=== PATIENT | male | born 1990 | race African-American/Black ===

== ENCOUNTER 2017-10-19 18:52 | Emergency (ER) | payer MEDICAID, OTHER ==
[~2017-10-19] VITALS: Ht 170.2 cm; Wt 59.0 kg
[2017-10-19 19:20] VITALS: BP 120/77
[2017-10-19] MEDS ORDERED: ALBUTEROL SULF8.5 GM INH (19:23)
[2017-10-19] MEDS ORDERED: PREDNISONE20 MG ORAL (19:23)
--- NOTE | 2017-10-20 12:59 | Emergency Room Report ---
History of Present Illness General Chief Complaint: Upper Respiratory Illness Source: Patient Present Illness HPI 27-year-old male presents ED complaining of cough and shortness of breath x2 days. States cough is dry. notes soreness in his chest with deep breaths. Denies history of asthma. Denies smoking. Denies fevers or chills. Denies bodyaches. Denies sore throat or earache. Denies sick contacts recent travel. Father aggravating relieving factors. Denies any other associated symptoms Allergies: Coded Allergies: No Known Allergies (Unverified , 03/15/15) Patient History Past Medical History: none Past Surgical History: none Pertinent Family History: none Social History: Denies: smoking, alcohol use, drug use Immunizations: UTD Reviewed Nursing Documentation: PMH: Agreed, PSxH: Agreed Nursing Documentation-PMH Past Medical History: No Stated History Review of Systems All Other Systems: negative except mentioned in HPI Physical Exam Vital Signs Date Time Temp Pulse Resp B/P (MAP) Pulse Ox O2 Delivery O2 Flow Rate FiO2 10/19/17 19:06 99.3 115 20 120/77 99 Room Air Sp02 EP Interpretation: reviewed, normal General Appearance: no apparent distress, alert, GCS 15, non-toxic Head: normocephalic, atraumatic Eyes: bilateral eye normal inspection, bilateral eye PERRL ENT: hearing grossly normal, normal pharynx, no angioedema, normal voice Neck: full range of motion, supple/symm/no masses Respiratory: chest non-tender, lungs clear, normal breath sounds, speaking full sentences Cardiovascular #1: regular rate, rhythm, no edema Cardiovascular #2: 2+ carotid (R), 2+ carotid (L), 2+ radial (R), 2+ radial (L) , 2+ dorsalis pedis (R), 2+ dorsalis pedis (L) Gastrointestinal: normal bowel sounds, non tender, soft, non-distended, no guarding, no rebound Rectal: deferred Genitourinary: normal inspection, no CVA tenderness Musculoskeletal: back normal, gait/station normal, normal range of motion, non- tender Neurologic: alert, oriented x3, responsive, motor strength/tone normal, sensory intact, speech normal Psychiatric: judgement/insight normal, memory normal, mood/affect normal, no suicidal/homicidal ideation Reflexes: 3+ bicep (R), 3+ bicep (L), 3+ tricep (R), 3+ tricep (L), 3+ knee (R) , 3+ knee (L) Skin: normal color, no rash, warm/dry, well hydrated Lymphatic: no adenopathy Medical Decision Making Diagnostic Impression: Primary Impression: Bronchitis ER Course Hospital Course 27-year-old male presents to ED complaining of cough, trouble breathing Differential diagnoses include: URI, pharyngitis, otitis media, asthma Clinical course Patient placed on stretcher. After initial history, physical exam reveals a male in no acute distress. Bilateral TM unremarkable. No pharyngeal erythema. No tonsillar exudates. No lymphadenopathy. lungs clear. abdomen soft. Clinical findings consistent with bronchitis. Reassurance given. Supportive therapy. Patient has strange affect. Reviewed EMR patient has prior history of amphetamine abuse Diagnosis - bronchitis Stable and discharged home with Rx Albuterol, Prednisone. Instructed to followup with PMD. Return to ED if symptoms recur or worsen Last Vital Signs Date Time Temp Pulse Resp B/P (MAP) Pulse Ox O2 Delivery O2 Flow Rate FiO2 10/19/17 19:20 115 20 Room Air 10/19/17 19:20 99.3 120/77 99 Status: improved Disposition: HOME, SELF-CARE Condition: Stable Scripts Prednisone* (PREDNISONE*) 20 Mg Tablet 40 MG ORAL DAILY, #10 TAB Prov: RICARDA CORDERO M.D. 10/19/17 Albuterol Sulfate* (ALBUTEROL SULFATE MDI*) 8.5 Gm Hfa.aer.ad 2 PUFF INH Q6H, #1 EA 0 Refills Prov: RICARDA CORDERO M.D. 10/19/17 Referrals: [facility]REFERRING (PCP) Patient Instructions: Acute Bronchitis, [id number] RICARDA CORDERO M.D. Oct 20, 2017 12:59
== END 2017-10-19 19:30 | disposition home or self-care (01) ==
LOC: EMR 19:30
DX: J40 Bronchitis, not specified as acute or chronic (principal)
CPT/HCPCS: 99283

== ENCOUNTER 2018-05-21 21:30 | Emergency (ER) | payer MEDICAID ==
[~2018-05-21] VITALS: Ht 172.7 cm; Wt 61.2 kg
[~2018-05-21 21:30] MED LIST: ALBUTEROL SULF8.5 GM INH; PREDNISONE20 MG ORAL
[2018-05-21 21:58] VITALS: BP 112/76
--- NOTE | 2018-05-21 22:14 | Emergency Room Report ---
History of Present Illness General Chief Complaint: Male Urogenital Problems Source: Patient Present Illness HPI Patient presents with reports that a ring that was placed around his genitals is difficult to remove He reports that he placed this on 2 days ago And as he continues not to be able to remove it he presents to the emergency room Denies any abdominal pain denies any nausea vomiting Denies any fevers or chills Allergies: Coded Allergies: No Known Allergies (Unverified , 03/15/15) Patient History Past Medical History: see triage record Pertinent Family History: none Reviewed Nursing Documentation: PMH: Agreed; PSxH: Agreed Nursing Documentation-PMH Past Medical History: No Stated History Review of Systems All Other Systems: negative except mentioned in HPI Physical Exam Vital Signs Date Time Temp Pulse Resp B/P (MAP) Pulse Ox O2 Delivery O2 Flow Rate FiO2 05/21/18 21:43 97.3 101 18 112/76 95 Room Air 97.3 Sp02 EP Interpretation: reviewed, normal General Appearance: well appearing, no apparent distress Head: normocephalic, atraumatic Eyes: bilateral eye PERRL, bilateral eye EOMI ENT: hearing grossly normal, normal pharynx Neck: full range of motion, supple Respiratory: lungs clear Cardiovascular #1: regular rate, rhythm Gastrointestinal: non tender, soft Genitourinary: other - Ring that is at the base of the shaft of the penis also underneath the scrotal area with secondary swelling to the shaft of the penis Musculoskeletal: back normal Neurologic: alert, oriented x3 Skin: other - Edema Lymphatic: no adenopathy Medical Decision Making Diagnostic Impression: Primary Impression: Abnormal urogenital findings Additional Impression: Foreign body ER Course Given the examination and the presentation Ring cutters were utilized To cuts in opposing locations will required As the ring was significantly wide and extremely hard to manipulate After removal patient feels significantly improved The penile engorgement also decreased appropriately no signs of any remnants of priapism. And the patient is stable for initial conservative outpatient trial Last Vital Signs Date Time Temp Pulse Resp B/P (MAP) Pulse Ox O2 Delivery O2 Flow Rate FiO2 05/21/18 21:43 97.3 101 18 112/76 95 Room Air 97.3 Status: improved Disposition: HOME, SELF-CARE Condition: Improved Additional Instructions: Patient is provided with the discharge instructions notified to follow up with primary doctor in the next 2-3 days otherwise return to the er with any worsening symptoms. Please note that this report is being documented using DRAGON technology. This can lead to erroneous entry secondary to incorrect interpretation by the dictating instrument. Manolo Adam DO May 21, 2018 22:14
[2018-05-21 23:35] VITALS: BP 116/72
[2018-05-21 23:45] VITALS: BP 116/72
== END 2018-05-21 23:45 | disposition home or self-care (01) ==
LOC: EMR 22:18
DX: S30.853A Superficial foreign body of scrotum and testes, initial encounter (principal); X58.XXXA Exposure to other specified factors, initial encounter; Y92.9 Unspecified place or not applicable
CPT/HCPCS: 99282

== ENCOUNTER 2018-06-09 00:57 | Emergency (ER) | payer MEDICAID ==
[~2018-06-09] VITALS: Ht 172.7 cm; Wt 59.0 kg
[2018-06-09] MEDS ORDERED: NKM (01:03)
[2018-06-09 01:08] VITALS: BP 122/84
--- NOTE | 2018-06-09 01:21 | Emergency Room Report ---
History of Present Illness General Chief Complaint: Chest Pain Source: Patient Present Illness HPI Is a 28-year-old male with a history of methamphetamine abuse. He presents with chief complaint of chest pain. He said he felt like there is something inside his chest and is spreading around. This has been going since this morning. Denies any fever chills. Nothing made it better. Movement or inspiration made it worse. No nausea no vomiting. No diaphoresis. No other complaint. Allergies: Coded Allergies: No Known Allergies (Unverified , 03/15/15) Patient History Past Medical History: see triage record, old chart reviewed Past Surgical History: none Pertinent Family History: none Social History: Reports: smoking, drug use Immunizations: other Reviewed Nursing Documentation: PMH: Agreed; PSxH: Agreed Nursing Documentation-PMH Past Medical History: No History, Except For Review of Systems Eye: Denies: eye pain, blurred vision ENT: Denies: ear pain, nose congestion, throat swelling Respiratory: Denies: cough, shortness of breath Cardiovascular: Reports: chest pain; Denies: palpitations Gastrointestinal: Denies: abdominal pain, diarrhea, nausea, vomiting Musculoskeletal: Denies: back pain, joint pain Skin: Denies: rash Neurological: Denies: headache, numbness Endocrine: Denies: increased thirst, increased urine Hematologic/Lymphatic: Denies: easy bruising All Other Systems: negative except mentioned in HPI Physical Exam Vital Signs Date Time Temp Pulse Resp B/P (MAP) Pulse Ox O2 Delivery O2 Flow Rate FiO2 06/09/18 01:01 98.1 113 18 122/84 98 Room Air 98.1 vitals with tachycardia Sp02 EP Interpretation: reviewed, normal General Appearance: well appearing, no apparent distress, alert Head: normocephalic, atraumatic Eyes: bilateral eye PERRL, bilateral eye EOMI ENT: hearing grossly normal, normal pharynx Neck: full range of motion, supple, no meningismus Respiratory: chest non-tender, lungs clear, normal breath sounds Cardiovascular #1: regular rate, rhythm, no murmur Gastrointestinal: normal bowel sounds, non tender, no mass, no organomegaly, no bruit, non-distended Musculoskeletal: back normal, gait/station normal, normal range of motion Psychiatric: mood/affect normal Skin: warm/dry Medical Decision Making Diagnostic Impression: Primary Impression: Chest pain Qualified Codes: R07.9 - Chest pain, unspecified Additional Impression: Amphetamine abuse ER Course Patient with atypical chest pain. He is in there, and playing on his phone. No evidence of ACS, PE, dissection to name a few. We'll discharge home. EKG Diagnostic Results Rate: normal Rhythm: NSR ST Segments: no acute changes ASA given to the pt in ED: No Rhythm Strip Diag. Results Rhythm Strip Time: 01:20 EP Interpretation: yes Rate: 98 Rhythm: NSR, no PVC's, no ectopy Chest X-Ray Diagnostic Results Chest X-Ray Diagnostic Results : Chest X-Ray Ordered: Yes # of Views/Limited/Complete: 1 View Indication: Chest Pain EP Interpretation: Yes Interpretation: no consolidation, no effusion, no pneumothorax, no acute cardiopulmonary disease Impression: No acute disease Electronically Signed by: Alirio Gray MD Last Vital Signs Date Time Temp Pulse Resp B/P (MAP) Pulse Ox O2 Delivery O2 Flow Rate FiO2 06/09/18 01:08 113 18 Room Air 06/09/18 01:08 98.1 122/84 98 98.1 Status: improved Disposition: HOME, SELF-CARE Condition: Stable Scripts Ibuprofen* (MOTRIN*) 600 Mg Tablet 600 MG ORAL THREE TIMES A DAY, #30 TAB 0 Refills Prov: ALIRIO GRAY M.D. 06/09/18 Patient Instructions: Nonspecific Chest Pain Additional Instructions: Abstain from drugs. Follow-up with your doctor in 7 days. Return if worse. ALIRIO GRAY M.D. Jun 09, 2018 01:21
[2018-06-09] MEDS ORDERED: IBUPROFEN600 MG ORAL (01:32)
[2018-06-09 01:38] VITALS: BP 122/84
--- NOTE | 2018-06-09 11:21 | Diagnostic Imaging Report ---
Indication: Dyspnea Comparison: None A single view chest radiograph was obtained. Findings: Cardiomediastinal appearance is within normal limits for age. Pulmonary vascularity is appropriate. The diaphragmatic contour is smooth and costophrenic angles are sharp. No pleural effusions are identified. The bones are unremarkable. Impression: No acute findings
--- NOTE | 2018-06-14 16:08 | Cardiology Report ---
APPROVED REPORT EKG Measurement Heart [id number] Normal sinus rhythm Normal ECG
[2018-06-15] MEDS ORDERED: HYDROCORTISONE30 G2 TP (14:13)
== END 2018-06-09 01:39 | disposition home or self-care (01) ==
LOC: EMR 01:24
DX: R07.9 Chest pain, unspecified (principal); F15.10 Other stimulant abuse, uncomplicated
CPT/HCPCS: 71045; 93005; 99283

== ENCOUNTER 2018-06-29 21:53 | Emergency (ER) | payer MEDICAID ==
[~2018-06-29] VITALS: Ht 175.3 cm; Wt 59.0 kg
[2018-06-29 21:35] VITALS: BP 136/72
[~2018-06-29 21:53] MED LIST changes: +HYDROCORTISONE30 G2 TP; +IBUPROFEN600 MG ORAL; +NKM
[2018-06-29] MEDS: LORazepam 0.5mg tab ORAL ONE ×2 (22:14→22:29)
[2018-06-29 23:27] VITALS: BP 133/83
[2018-06-29] MEDS ORDERED: LORazepam 0.5mg tab ORAL ONE (23:30)
--- NOTE | 2018-06-30 04:18 | Emergency Room Report ---
History of Present Illness General Chief Complaint: General Complaint Source: EMS Present Illness HPI The patient is a 28-year-old male presented after increased anxiety. Patient reports having increased agitation after using methamphetamine. The patient denies any fever. He reports having the difficulty sleeping. Allergies: Coded Allergies: No Known Allergies (Unverified , 03/15/15) Patient History Past Medical History: see triage record Reviewed Nursing Documentation: PMH: Agreed; PSxH: Agreed Nursing Documentation-PMH Past Medical History: No History, Except For Review of Systems All Other Systems: negative except mentioned in HPI Physical Exam Vital Signs Date Time Temp Pulse Resp B/P (MAP) Pulse Ox O2 Delivery O2 Flow Rate FiO2 06/29/18 21:33 99.2 92 16 136/72 99 Room Air 99.1 General Appearance: well appearing, no apparent distress, alert, GCS 15 Head: normocephalic, atraumatic ENT: hearing grossly normal, normal voice Neck: full range of motion, supple Respiratory: no respiratory distress, speaking full sentences Musculoskeletal: no calf tenderness Neurologic: normal gait Psychiatric: mood/affect normal Skin: no rash Medical Decision Making Diagnostic Impression: Primary Impression: Substance abuse Last Vital Signs Date Time Temp Pulse Resp B/P (MAP) Pulse Ox O2 Delivery O2 Flow Rate FiO2 06/29/18 23:27 97.5 100 19 133/83 99 Room Air Disposition: HOME, SELF-CARE Condition: Stable Referrals: [facility] (PCP) Patient Instructions: Substance Use Disorder Mario Nazario MD Jun 30, 2018 04:18
== END 2018-06-29 23:45 | disposition home or self-care (01) ==
LOC: EDBD 21:53 → EMR 23:28
DX: F15.10 Other stimulant abuse, uncomplicated (principal)
CPT/HCPCS: 99283

== ENCOUNTER 2019-01-19 21:06 | Emergency (ER) | payer MEDICAID ==
[~2019-01-19] VITALS: Ht 175.3 cm; Wt 59.0 kg
[2019-01-19] MEDS ORDERED: TRUVADA1 TAB ORAL (21:16)
--- NOTE | 2019-01-19 21:22 | NUR ---
ED Nurse Note: pt walked in c/o left 5th finger pain and abscess on back of head, pt states he had abscess x 1 month, denies pain. noted small bump on parietal area, no active drainage noted. Pt reports he was doing some tumbling and accidentally hurt his finger, reports pain on left 5th finger. cms intact, mild swelling noted with tenderness, but no open wound noted. will cont monitor.
[2019-01-19 21:24] VITALS: BP 126/81
[2019-01-19] MEDS ORDERED: IBUPROFEN600 MG ORAL (22:36)
--- NOTE | 2019-01-19 22:42 | NUR ---
ED Nurse Note: pt cleared to be d/c per ERMD, pt discharge and aftercare instruction provided w/ prescription, pt education done via discussion and handout, pt advised to follow up with pcp or return to ed if sx worsen or new sx develop, pt verbalized understanding and agrees with plan, vss, ambulatory w/ steady gait, left w/ all belongings. ID band removed
[2019-01-19 22:43] VITALS: BP 121/67
--- NOTE | 2019-01-20 00:15 | Emergency Room Report ---
History of Present Illness General Chief Complaint: Upper Extremity Injury Source: Patient Present Illness HPI 28-year-old male presents ED for evaluation. States that he has a possibly dislocated finger. States it was initially swollen after punching a wall earlier today. Pain is dull, 5 out of 10, nonradiating. Denies any other injuries. No other aggravating relieving factors. Denies any other associated symptoms Allergies: Coded Allergies: No Known Allergies (Unverified , 03/15/15) Patient History Past Medical History: none Past Surgical History: none Pertinent Family History: none Social History: Denies: smoking, alcohol use, drug use Immunizations: UTD Reviewed Nursing Documentation: PMH: Agreed; PSxH: Agreed Nursing Documentation-PMH Past Medical History: No History, Except For Review of Systems All Other Systems: negative except mentioned in HPI Physical Exam Vital Signs Date Time Temp Pulse Resp B/P (MAP) Pulse Ox O2 Delivery O2 Flow Rate FiO2 01/19/19 21:12 98.6 118 16 126/81 97 Room Air Sp02 EP Interpretation: reviewed, normal General Appearance: no apparent distress, alert, GCS 15, non-toxic Head: normocephalic Eyes: bilateral eye normal inspection, bilateral eye PERRL ENT: normal ENT inspection Neck: normal inspection Respiratory: normal inspection Cardiovascular #1: normal inspection Gastrointestinal: normal inspection Rectal: deferred Genitourinary: no CVA tenderness Musculoskeletal: normal range of motion, tender - L hand Neurologic: alert, oriented x3, responsive, motor strength/tone normal, sensory intact, speech normal Psychiatric: judgement/insight normal, memory normal, mood/affect normal, no suicidal/homicidal ideation Skin: normal inspection Lymphatic: normal inspection Medical Decision Making Diagnostic Impression: Primary Impression: Hand contusion Qualified Codes: S60.222A - Contusion of left hand, initial encounter ER Course Hospital Course 28 yo M present with L 5th finger pain/swelling Differential diagnoses include: Fracture, dislocation, sprain, contusion Clinical course Patient placed on stretcher. After initial history and physical, I ordered xrays of L hand Xrays read shows no acute fracture/dislocation. discussed findings with patient. safe for discharge with close outpatient followup Diagnosis - hand contusion Stable and discharged to home with prescription for Motrin. apply ice, keep elevated. weight bear as tolerated. Followup with PMD. Return to ED if symptoms recur or worsen Other X-Ray Diagnostic Results Other X-Ray Diagnostic Results : X-Ray ordered: L hand # of Views/Limited Vs Complete: 3 View Indication: Pain EP Interpretation: Yes Interpretation: no dislocation, no soft tissue swelling, no fractures Impression: No acute disease Electronically Signed by: Electronically signed by Sudeep Schulte MD Last Vital Signs Date Time Temp Pulse Resp B/P (MAP) Pulse Ox O2 Delivery O2 Flow Rate FiO2 01/19/19 22:43 98.6 108 16 121/67 100 Room Air Status: improved Disposition: HOME, SELF-CARE Condition: Stable Scripts Ibuprofen* (MOTRIN*) 600 Mg Tablet 600 MG ORAL Q8H PRN for For Pain, #30 TAB 0 Refills Prov: Sudeep Schulte MD 01/19/19 Patient Instructions: Contusion, Mvha-ck-Zlln Sudeep Schulte MD Jan 20, 2019 00:15
== END 2019-01-19 22:43 | disposition home or self-care (01) ==
LOC: EMR 21:27
DX: S60.222A Contusion of left hand, initial encounter (principal); W22.01XA Walked into wall, initial encounter; Y92.89 Other specified places as the place of occurrence of the external cause
CPT/HCPCS: 99283

== ENCOUNTER 2019-04-05 18:51 | Emergency (ER) | payer MEDICAID ==
[~2019-04-05] VITALS: Ht 172.7 cm; Wt 59.0 kg
[~2019-04-05 18:51] MED LIST changes: +TRUVADA1 TAB ORAL
[2019-04-05] MEDS ORDERED: UNOBMED (18:55)
--- NOTE | 2019-04-05 19:15 | NUR ---
ED Nurse Note: Recieved report to resume care, pt biba from streets with c/o meth use and eyes burning, pt is in room standing at doorway and speaking bizzarrily, pt acting as if he is not aware this is a hospital, pt asking nurse to go to store and purchase him items, pt denies pain but states he is dying, no sob or labored breathing noted, pt also drinking beverage in hand and asking for more, attempted to flush pt eyes with saline, pt states better after a few drop of saline, will continue to closely monitor and resume care as ordered.
--- NOTE | 2019-04-05 19:43 | Emergency Room Report ---
History of Present Illness General Chief Complaint: General Complaint Source: Patient Present Illness HPI 29 YO male presents to the ED after calling 911 for himself c/o "feeling weird" after smoking meth 5 hours ago. Pt. reports hx of meth use. States once a week / binges. Denies psych hx, SI, or HI. Pt. reports multiple previous ED visits for Drug use. Pt. states he also took the meth rectally today which is not how he normally does, and believes the drugs are stronger and hit him harder than the method he normally uses. No other complaints at this time. pt. reports feeling anxious. Denies pain, CP, Palpitations, LOC, AMS, dizziness, Changes in Vision, Sensation, paresthesias, or a sudden severe headache. Allergies: Coded Allergies: No Known Allergies (Unverified , 03/15/15) Patient History Past Medical History: see triage record Past Surgical History: none Pertinent Family History: none Social History: Reports: drug use - meth Reviewed Nursing Documentation: PMH: Agreed; PSxH: Agreed Nursing Documentation-PMH Past Medical History: No History, Except For Review of Systems All Other Systems: negative except mentioned in HPI Physical Exam Vital Signs Date Time Temp Pulse Resp B/P (MAP) Pulse Ox O2 Delivery O2 Flow Rate FiO2 04/05/19 18:50 74 18 138/80 (99) 97 Room Air Sp02 EP Interpretation: reviewed, normal General Appearance: no apparent distress, alert, GCS 15, non-toxic Head: normocephalic, atraumatic Eyes: bilateral eye normal inspection, bilateral eye PERRL ENT: hearing grossly normal, normal voice Neck: full range of motion Respiratory: lungs clear, normal breath sounds, speaking full sentences Cardiovascular #1: regular rate, rhythm, no edema, tachycardia Gastrointestinal: non tender, soft Musculoskeletal: back normal, gait/station normal, normal range of motion, non- tender Neurologic: alert, oriented x3, responsive, motor strength/tone normal, sensory intact, normal gait, speech normal, grossly normal Psychiatric: judgement/insight normal, no suicidal/homicidal ideation, anxious , other - very talkative, concerned/anxious about amount and route he used to take meth today. Skin: normal color, no rash, warm/dry, well hydrated Medical Decision Making PA Attestation Dr. Adam is my supervising Physician whom patient management has been discussed with. Diagnostic Impression: Primary Impression: Substance abuse Additional Impression: Amphetamine abuse ER Course 29 YO male presents to the ED after calling 911 for himself c/o "feeling weird" after smoking meth 5 hours ago. Pt. reports hx of meth use. States once a week / binges. Denies psych hx, SI, or HI. Pt. reports multiple previous ED visits for Drug use. Pt. states he also took the meth rectally today which is not how he normally does, and believes the drugs are stronger and hit him harder than the method he normally uses. No other complaints at this time. pt. reports feeling anxious. Denies pain, CP, Palpitations, LOC, AMS, dizziness, Changes in Vision, Sensation, paresthesias, or a sudden severe headache. Ddx considered but are not limited to ETOH, Trauma, Syncope, dementia, OD, substance abuse Vital signs: are WNL, pt. is afebrile H&PE are most consistent with acute drug intoxication ORDERS: none ED INTERVENTIONS: - 1mg Ativan PO -Observance while he detoxifies. -Pt. was allowed to rest. -PT. continues to be awake and alert x 3 re ports symptoms have improved after ativan. -D/w pt. to stop using meth. offered narcan- pt. declines and states he does not use opiates only meth. DISCHARGE: At this time pt. is stable for d/c to home. Will provide printed patient care instructions, and any necessary prescriptions. Care plan and follow up instructions have been discussed with the patient prior to discharge. Ddx considered but are not limited to ETOH, Trauma, Syncope, dementia, OD, substance abuse Vital signs: are WNL, pt. is afebrile H&PE are most consistent with acute drug intoxication ORDERS: - UDS; ED INTERVENTIONS: - 1mg Ativan PO -Observance while he detoxifies. -Pt. was allowed to sleep/rest. -PT. continues to remain awake and alert x 3, NAD, and non-toxic in appearance DISCHARGE: At this time pt. is stable for d/c to home. Will provide printed patient care instructions, and any necessary prescriptions. Care plan and follow up instructions have been discussed with the patient prior to discharge. Last Vital Signs Date Time Temp Pulse Resp B/P (MAP) Pulse Ox O2 Delivery O2 Flow Rate FiO2 04/05/19 18:50 74 18 138/80 (99 97 Room Air Status: improved Disposition: HOME, SELF-CARE Condition: Stable Referrals: [facility] (PCP) Patient Instructions: Medical Screening Exam Additional Instructions: Take any previously prescribed medications as directed. STOP USING METH Follow up with a Primary Care Provider in 3-5 days, even if your symptoms have resolved. --Please review list of primary care clinics, if you do not already have a primary care provider Return sooner to ED if new symptoms occur, or current symptoms become worse. - Please note that this Emergency Department Report was dictated using [employer] ultrasound technician technology software, occasionally this can lead to erroneous entry secondary to interpretation by the dictation equipment. Evangelina Haines Apr 05, 2019 19:43
[2019-04-05] MEDS ORDERED: LORazepam 1mg tab ORAL ONE (19:45)
[2019-04-05 20:15] VITALS: BP 138/80
--- NOTE | 2019-04-05 20:20 | NUR ---
ED Nurse Note: Pt medicated as ordered, meds helped and effective, pt is more calm, pt denies being homeless, pt is being d/c to home, awake, alert and oriented, pt given f/u info and after care instructions, pt is ambulatory, no pain, no sob or labored breathing, nad noted during d/c to home.
[2019-04-05 20:22] VITALS: BP 138/80
== END 2019-04-05 20:24 | disposition home or self-care (01) ==
LOC: EDBD 18:51 → EMR 19:06
DX: F15.10 Other stimulant abuse, uncomplicated (principal)
CPT/HCPCS: 99282

== ENCOUNTER 2019-04-08 05:44 | Emergency (ER) | payer MEDICAID ==
[~2019-04-08] VITALS: Ht 172.7 cm; Wt 59.0 kg
[~2019-04-08 05:44] MED LIST changes: +UNOBMED
[2019-04-08 05:46] VITALS: BP 121/81
--- NOTE | 2019-04-08 05:53 | Emergency Room Report ---
History of Present Illness General Chief Complaint: Substance Abuse Source: Patient, EMS Present Illness HPI Patient called EMS because he could not sleep. He has been noncompliant with his HIV medication for the last week. He is complaining about constipation, weakness and dehydration. The patient denies suicidal or homicidal ideation. He is not coughing up any phlegm. The patient was seen here 3 days ago. Given Ativan. Tox + for meth. He denies other somatic complaints. Allergies: Coded Allergies: No Known Allergies (Unverified , 04/08/19) Patient History Past Medical History: see triage record Social History: Reports: drug use; Denies: smoking Social History Narrative from home Reviewed Nursing Documentation: PMH: Agreed; PSxH: Agreed Review of Systems All Other Systems: negative except mentioned in HPI Physical Exam Vital Signs Date Time Temp Pulse Resp B/P (MAP) Pulse Ox O2 Delivery O2 Flow Rate FiO2 04/08/19 05:42 97.5 94 16 121/81 (94) 98 Room Air Sp02 EP Interpretation: reviewed, normal General Appearance: no apparent distress, GCS 15, thin, Chronically Ill Head: normocephalic Eyes: bilateral eye PERRL, bilateral eye conjunctivae pale ENT: dry mucus membranes Neck: supple Respiratory: lungs clear, normal breath sounds Cardiovascular #1: tachycardia Cardiovascular #2: 2+ radial (R) Gastrointestinal: non tender, soft, no mass, scaphoid Genitourinary: no CVA tenderness Musculoskeletal: back normal, normal range of motion Neurologic: alert, oriented x3, karate teacher III-XII nml as tested, motor strength/tone normal, DTRs symmetric, sensory intact Psychiatric: no suicidal/homicidal ideation, other - poor insight Skin: no rash Medical Decision Making Diagnostic Impression: Primary Impression: Amphetamine abuse Additional Impression: HIV noncompliance ER Course Presents with insomnia after using methamphetamine. He denies suicidal ideation at this time. He also states he is noncompliant with his HIV medication. Differential includes electrolyte abnormality, anemia, amphetamine abuse, other toxic ingestion amongst others. Patient will be evaluated with EKG chest x-ray and labs. Will receive IV hydration. EKG, CXR and labs unremarkable. Patient sleeping intermittently. Still denies SI or HI. States feels OK to go home. Discussed need for return to some 12 step program ( he had been in [facility] in past). Also discussed need to return to his HIV MD and to resume taking antivirals. Patient stable for outpatient observation and treatment. Laboratory Tests Test 04/08/19 05:55 04/08/19 05:58 04/08/19 05:59 Urine Color Pale yellow Urine Appearance Clear Urine pH 8 (4.5-8.0) Urine Specific [place] 1.015 (1.005-1.035) Urine Protein Negative (NEGATIVE) Urine Glucose (UA) Negative (NEGATIVE) Urine Ketones Negative (NEGATIVE) Urine Blood Negative (NEGATIVE) Urine Nitrite Negative (NEGATIVE) Urine Bilirubin Negative (NEGATIVE) Urine Urobilinogen Normal MG/DL (0.0-1.0) Urine Leukocyte Esterase Negative (NEGATIVE) Urine Opiates Screen Negative (NEGATIVE) Urine Barbiturates Screen Negative (NEGATIVE) Phencyclidine (PCP) Screen Negative (NEGATIVE) Urine Amphetamines Screen Positive (NEGATIVE) H Urine Benzodiazepines Screen Negative (NEGATIVE) Urine Cocaine Screen Negative (NEGATIVE) Urine Marijuana (THC) Screen Negative (NEGATIVE) Prothrombin Time Pending Prothrombin Time INR Pending PTT Pending Sodium Level 141 MMOL/L (136-145) Potassium Level 3.8 MMOL/L (3.5-5.1) Chloride Level 104 MMOL/L (98-107) Carbon Dioxide Level 31 MMOL/L (21-32) Anion Gap 6 mmol/L (5-15) Blood Urea Nitrogen 10 mg/dL (7-18) Creatinine 1.1 MG/DL (0.55-1.30) Estimate Glomerular Filtration Rate > 60 mL/min (>60) Glucose Level 89 MG/DL (74-106) Calcium Level 9.4 MG/DL (8.5-10.1) Total Bilirubin 0.3 MG/DL (0.2-1.0) Aspartate Amino Transferase (AST) 16 U/L (15-37) Alanine Aminotransferase (ALT) 21 U/L (12-78) Alkaline Phosphatase 80 U/L (46-116) Total Creatine Kinase 156 U/L (26-308) Troponin I 0.000 ng/mL (0.000-0.056) Pro-B-Type Natriuretic Peptide 10 pg/mL (0-125) Total Protein 7.4 G/DL (6.4-8.2) Albumin 4.4 G/DL (3.4-5.0) Globulin 3.0 g/dL Albumin/Globulin Ratio 1.5 (1.0-2.7) White Blood Count 5.7 K/UL (4.8-10.8) Red Blood Count 5.31 M/UL (4.70-6.10) Hemoglobin 15.1 G/DL (14.2-18.0) Hematocrit 48.0 % (42.0-52.0) Mean Corpuscular Volume 90 FL (80-99) Mean Corpuscular Hemoglobin 28.4 PG (27.0-31.0) Mean Corpuscular Hemoglobin Concent 31.4 G/DL (32.0-36.0) L Red Cell Distribution Width 12.9 % (11.6-14.8) Platelet Count 193 K/UL (150-450) Mean Platelet Volume 8.1 FL (6.5-10.1) Neutrophils (%) (Auto) 29.2 % (45.0-75.0) L Lymphocytes (%) (Auto) 53.2 % (20.0-45.0) H Monocytes (%) (Auto) 14.1 % (1.0-10.0) H Eosinophils (%) (Auto) 1.5 % (0.0-3.0) Basophils (%) (Auto) 1.9 % (0.0-2.0) EKG Diagnostic Results Rate: normal Rhythm: NSR ST Segments: no acute changes Rhythm Strip Diag. Results EP Interpretation: yes Rhythm: NSR, no PVC's, no ectopy Chest X-Ray Diagnostic Results Chest X-Ray Diagnostic Results : Chest X-Ray Ordered: Yes # of Views/Limited/Complete: 1 View Indication: Other EP Interpretation: Yes Interpretation: no consolidation, no effusion, no pneumothorax Impression: No acute disease Electronically Signed by: Kip Christianson MD Last Vital Signs Date Time Temp Pulse Resp B/P (MAP) Pulse Ox O2 Delivery O2 Flow Rate FiO2 04/08/19 07:02 97.5 16 121/81 98 Room Air 04/08/19 05:46 94 Status: improved Disposition: HOME, SELF-CARE Condition: Improved Kip Christianson MD Apr 08, 2019 05:53
--- NOTE | 2019-04-08 06:00 | NUR ---
ED Nurse Note: Patient was BIBA from home due to OD. Patient states that he did not use any substance today, just having difficulty to breath. AAO x4, VSS at this time, skin is dry, warm to touch. Patient's O2 sat upon arriving 98% on RA.
[2019-04-08 06:19] LABS: BASOPHILS % (AUTO) 1.9 % (0.0-2.0); EOSINOPHILS % (AUTO) 1.5 % (0.0-3.0); HEMOGLOBIN 15.1 G/DL (14.2-18.0); LYMPHOCYTES % (AUTO) 53.2 % (20.0-45.0); MEAN CORPUSCULAR VOLUME 90 FL (80-99); MONOCYTES % (AUTO) 14.1 % (1.0-10.0); NEUTROPHILS % (AUTO) 29.2 % (45.0-75.0); PLATELET COUNT 193 K/UL (150-450); RED BLOOD COUNT 5.31 M/UL (4.70-6.10); RED CELL DISTRIBUTION WIDTH 12.9 % (11.6-14.8); WHITE BLOOD COUNT 5.7 K/UL (4.8-10.8)
[2019-04-08 06:22] LABS: APPEARANCE,URINE CLEAR; BILIRUBIN, URINE NEGATIVE (NEGATIVE); COLOR,URINE PALE YELLOW; GLUCOSE, URINE (UA) NEGATIVE (NEGATIVE); KETONES,URINE NEGATIVE (NEGATIVE); LEUKOCYTE ESTERASE ,URINE NEGATIVE (NEGATIVE); NITRITE,URINE NEGATIVE (NEGATIVE); PH,URINE 8 (4.5-8.0); PROTEIN,URINE NEGATIVE (NEGATIVE); UROBILINOGEN,URINE NORMAL MG/DL (0.0-1.0)
[2019-04-08 06:31] LABS: ANION GAP 6 mmol/L (5-15); BLOOD UREA NITROGEN 10 mg/dL (7-18); CALCIUM 9.4 MG/DL (8.5-10.1); CARBON DIOXIDE 31 MMOL/L (21-32); CHLORIDE 104 MMOL/L (98-107); CREATININE 1.1 MG/DL (0.55-1.30); POTASSIUM 3.8 MMOL/L (3.5-5.1); SODIUM 141 MMOL/L (136-145)
--- NOTE | 2019-04-08 06:34 | Diagnostic Imaging Report ---
EXAM: XR Chest, 1 View CLINICAL HISTORY: ALOC TECHNIQUE: Frontal view of the chest. COMPARISON: June 09, 2018. FINDINGS: Lungs: Unremarkable. No consolidation. Pleural space: Unremarkable. No pneumothorax. Heart: Unremarkable. No cardiomegaly. Mediastinum: Unremarkable. Bones/joints: Unremarkable. IMPRESSION: No acute cardiopulmonary process.
[2019-04-08 06:41] LABS: ALANINE AMINOTRANSFERASE 21 U/L (12-78); ALBUMIN 4.4 G/DL (3.4-5.0); ALBUMIN/GLOBULIN RATIO 1.5 (1.0-2.7); ALKALINE PHOSPHATASE 80 U/L (46-116); ASPARTATE AMINO TRANSFERASE 16 U/L (15-37); BILIRUBIN,TOTAL 0.3 MG/DL (0.2-1.0); CREATINE KINASE 156 U/L (26-308)
[2019-04-08 06:47] LABS: INR 1.1 (0.9-1.1)
[2019-04-08 07:02] VITALS: BP 121/81
--- NOTE | 2019-04-08 07:03 | NUR ---
ER DISCHARGE NOTE: Patient is cleared to be discharged per ERMD, pt is aox4, on room air, with stable vital signs. pt was given dc and prescription instructions, pt was able to verbalize understanding, pt id band and iv site removed without complications. pt is able to ambulate with steady gait. pt took all belongings.
== END 2019-04-08 07:06 | disposition home or self-care (01) ==
LOC: EDBD 05:44 → EMR 06:14
DX: F15.10 Other stimulant abuse, uncomplicated (principal); B20 Human immunodeficiency virus [HIV] disease; Z91.19 Patient's noncompliance with other medical treatment and regimen
CPT/HCPCS: 36415; 71045; 80053; 80307; 81003; 82550; 83880; 84484; 85025; 85610; 85730; 93005; 96360; 99284

== ENCOUNTER 2019-05-11 10:51 | Emergency (ER) | payer MEDICAID ==
[~2019-05-11] VITALS: Ht 172.7 cm; Wt 54.4 kg
[2019-05-11 11:00] VITALS: BP 126/94
[2019-05-11] MEDS ORDERED: NKM (11:00)
--- NOTE | 2019-05-11 11:01 | NUR ---
ED Nurse Note: pt walked in to ED due to SOB after smoke meth at home. pt took uber to get hospital. pt throw his stuff and unable to stay calm. laborsed breathing noted. tachypnea noted. RN instructed pt to take breathing slowly. 100% pulse oximetry in RA. PT yelling for oxygen. RN applied 1L via NC for comfort measure. AAO x4. skin warm to touch. no open wound noted. will wait for the further order.
--- NOTE | 2019-05-11 11:08 | NUR ---
attempted to take ekg, patient was incooperative. Ermd notified
[2019-05-11] MEDS ORDERED: Albuterol/Ipratropium 3ml neb HHN ONE (11:30)
[2019-05-11] MEDS ORDERED: LORazepam Inj 2mg/ml 1ml IV ONE (11:30)
[2019-05-11 11:32] LABS: BASOPHILS % (AUTO) 1.7 % (0.0-2.0); EOSINOPHILS % (AUTO) 0.1 % (0.0-3.0); HEMATOCRIT 44.7 % (42.0-52.0); HEMOGLOBIN 13.9 G/DL (14.2-18.0); MEAN CORPUSCULAR VOLUME 92 FL (80-99); MONOCYTES % (AUTO) 11.3 % (1.0-10.0); NEUTROPHILS % (AUTO) 52.9 % (45.0-75.0); PLATELET COUNT 261 K/UL (150-450); RED BLOOD COUNT 4.87 M/UL (4.70-6.10); RED CELL DISTRIBUTION WIDTH 13.7 % (11.6-14.8); WHITE BLOOD COUNT 9.3 K/UL (4.8-10.8)
[2019-05-11 11:36] LABS: APPEARANCE,URINE CLEAR; BILIRUBIN, URINE NEGATIVE (NEGATIVE); COLOR,URINE PALE YELLOW; GLUCOSE, URINE (UA) NEGATIVE (NEGATIVE); KETONES,URINE NEGATIVE (NEGATIVE); LEUKOCYTE ESTERASE ,URINE NEGATIVE (NEGATIVE); NITRITE,URINE NEGATIVE (NEGATIVE); PH,URINE 8 (4.5-8.0); PROTEIN,URINE NEGATIVE (NEGATIVE); UROBILINOGEN,URINE NORMAL MG/DL (0.0-1.0)
[2019-05-11 11:40] LABS: ANION GAP 12 mmol/L (5-15); BLOOD UREA NITROGEN 10 mg/dL (7-18); CALCIUM 9.6 MG/DL (8.5-10.1); CARBON DIOXIDE 23 MMOL/L (21-32); CHLORIDE 101 MMOL/L (98-107); POTASSIUM 3.2 MMOL/L (3.5-5.1); SODIUM 136 MMOL/L (136-145)
[2019-05-11 11:50] LABS: ALANINE AMINOTRANSFERASE 17 U/L (12-78); ALBUMIN 4.5 G/DL (3.4-5.0); ALBUMIN/GLOBULIN RATIO 1.1 (1.0-2.7); ALKALINE PHOSPHATASE 80 U/L (46-116); ASPARTATE AMINO TRANSFERASE 16 U/L (15-37); BILIRUBIN,TOTAL 0.3 MG/DL (0.2-1.0)
[2019-05-11 12:00] VITALS: BP 152/95
[2019-05-11 13:00] VITALS: BP 136/80
[2019-05-11] MEDS ORDERED: Dexamethasone 4mg/ml vial IVP ONE (13:00)
--- NOTE | 2019-05-11 13:06 | Diagnostic Imaging Report ---
Indication: Shortness of breath Technique: One view of the chest Comparison: 04/08/2019 Findings: Lungs and pleural spaces are clear. Heart size is normal. No significant interim change Impression: No acute process
--- NOTE | 2019-05-11 13:20 | Emergency Room Report ---
History of Present Illness General Chief Complaint: Dyspnea/Respdistress Source: Patient Present Illness HPI Patient is a 29-year-old male who presented after increased respiratory distress. Patient reports having used bad meth.Patient reports having increased difficulty with respirations. He reports having increased palpitations.Patient reports having increased shortness of breath. History is limited by poor patient cooperation. Allergies: Coded Allergies: No Known Allergies (Unverified , 04/08/19) Patient History Past Medical History: see triage record Reviewed Nursing Documentation: PMH: Agreed; PSxH: Agreed Nursing Documentation-PMH Past Medical History: No History, Except For Review of Systems All Other Systems: negative except mentioned in HPI Physical Exam Vital Signs Date Time Temp Pulse Resp B/P (MAP) Pulse Ox O2 Delivery O2 Flow Rate FiO2 05/11/19 10:57 98.1 140 28 161/87 (111) 100 Room Air 05/11/19 12:00 2.0 28 Sp02 EP Interpretation: reviewed, normal General Appearance: normal inspection, alert, GCS 15, thin, Chronically Ill Head: atraumatic ENT: normal ENT inspection, hearing grossly normal, normal voice Neck: normal inspection, full range of motion, supple, no bony tend Respiratory: normal inspection, lungs clear, normal breath sounds, no respiratory distress, no retraction, no wheezing Cardiovascular #1: no edema, tachycardia Gastrointestinal: normal inspection, normal bowel sounds, non tender, soft, no guarding, no hernia Genitourinary: no CVA tenderness Musculoskeletal: normal inspection, back normal, normal range of motion Neurologic: normal inspection, alert, oriented x3, responsive, speech language pathologist assistant III-XII nml as tested, speech normal Psychiatric: normal inspection, judgement/insight normal, mood/affect normal Medical Decision Making Diagnostic Impression: Primary Impression: Amphetamine abuse ER Course Patient presented for shortness of breath. Differential diagnosis include was not limited to pneumonia, pulmonary embolism, COPD among others. Because of complexity of patient's case laboratory testing and imaging studies were ordered. Patient was noted to have what appeared to be methamphetamine related tachycardia. He was given breathing treatments as well as Decadron due to some difficulty with respirations and had improvement. He was also given Ativan. Patient was noted to have improvement in his condition and appears to be stable for discharge. Chest x-ray 1 view read by radiology showed no acute process. Laboratory testing was unremarkable. ABG showed no evidence of aa gradient or acidosis.Patient was noted to have improvement in his heart rate. Patient was advised to stop using drugs. Patient was noted to be normotensive with normal heart rate after medications. Patient was discharged in stable condition. Labs Test 05/11/19 11:00 05/11/19 11:21 05/11/19 13:14 White Blood Count 9.3 K/UL (4.8-10.8) Red Blood Count 4.87 M/UL (4.70-6.10) Hemoglobin 13.9 G/DL (14.2-18.0) Hematocrit 44.7 % (42.0-52.0) Mean Corpuscular Volume 92 FL (80-99) Mean Corpuscular Hemoglobin 28.6 PG (27.0-31.0) Mean Corpuscular Hemoglobin Concent 31.2 G/DL (32.0-36.0) Red Cell Distribution Width 13.7 % (11.6-14.8) Platelet Count 261 K/UL (150-450) Mean Platelet Volume 7.6 FL (6.5-10.1) Neutrophils (%) (Auto) 52.9 % (45.0-75.0) Lymphocytes (%) (Auto) 34.0 % (20.0-45.0) Monocytes (%) (Auto) 11.3 % (1.0-10.0) Eosinophils (%) (Auto) 0.1 % (0.0-3.0) Basophils (%) (Auto) 1.7 % (0.0-2.0) Sodium Level 136 MMOL/L (136-145) Potassium Level 3.2 MMOL/L (3.5-5.1) Chloride Level 101 MMOL/L (98-107) Carbon Dioxide Level 23 MMOL/L (21-32) Anion Gap 12 mmol/L (5-15) Blood Urea Nitrogen 10 mg/dL (7-18) Creatinine 1.0 MG/DL (0.55-1.30) Estimat Glomerular Filtration Rate > 60 mL/min (>60) Glucose Level 100 MG/DL (74-106) Calcium Level 9.6 MG/DL (8.5-10.1) Total Bilirubin 0.3 MG/DL (0.2-1.0) Aspartate Amino Transf (AST/SGOT) 16 U/L (15-37) Alanine Aminotransferase (ALT/SGPT) 17 U/L (12-78) Alkaline Phosphatase 80 U/L (46-116) Troponin I 0.000 ng/mL (0.000-0.056) Pro-B-Type Natriuretic Peptide 71 pg/mL (0-125) Total Protein 8.5 G/DL (6.4-8.2) Albumin 4.5 G/DL (3.4-5.0) Globulin 4.0 g/dL Albumin/Globulin Ratio 1.1 (1.0-2.7) Urine Color Pale yellow Urine Appearance Clear Urine pH 8 (4.5-8.0) Urine Specific [place] 1.015 (1.005-1.035) Urine Protein Negative (NEGATIVE) Urine Glucose (UA) Negative (NEGATIVE) Urine Ketones Negative (NEGATIVE) Urine Blood Negative (NEGATIVE) Urine Nitrite Negative (NEGATIVE) Urine Bilirubin Negative (NEGATIVE) Urine Urobilinogen Normal MG/DL (0.0-1.0) Urine Leukocyte Esterase Negative (NEGATIVE) Urine RBC 0 /HPF (0 - 0) Urine WBC 0-2 /HPF (0 - 0) Urine Squamous Epithelial Cells Occasional /LPF Urine Bacteria Occasional /HPF (NONE) Urine Opiates Screen Negative (NEGATIVE) Urine Barbiturates Screen Negative (NEGATIVE) Phencyclidine (PCP) Screen Negative (NEGATIVE) Urine Amphetamines Screen Positive (NEGATIVE) Urine Benzodiazepines Screen Negative (NEGATIVE) Urine Cocaine Screen Negative (NEGATIVE) Urine Marijuana (THC) Screen Negative (NEGATIVE) EKG Diagnostic Results Rate: tachycardiac Rhythm: NSR ST Segments: no acute changes Last Vital Signs Date Time Temp Pulse Resp B/P (MAP) Pulse Ox O2 Delivery O2 Flow Rate FiO2 05/11/19 12:11 137 31 97 Nasal Cannula 3.0 32 05/11/19 11:00 126/94 05/11/19 10:57 98.1 Status: improved Disposition: HOME, SELF-CARE Condition: Stable Referrals: [facility],REFERRING (PCP) Mario Nazario MD May 11, 2019 13:20
--- NOTE | 2019-05-11 13:30 | NUR ---
ED Nurse Note: pt became fully awake and oriented. be calm. heart rate went down to 105. Dr. Nazario notified.
[2019-05-11 14:00] VITALS: BP 155/92
[2019-05-11 15:14] VITALS: BP 151/98
--- NOTE | 2019-05-11 15:17 | NUR ---
ER DISCHARGE NOTE: Patient is cleared to be discharged per ERMD, pt is aox4, on room air, with stable vital signs. pt was given dc instructions, pt was able to verbalize understanding, pt id band and iv site removed without complications. pt is able to ambulate with steady gait. pt took all belongings.
== END 2019-05-11 15:28 | disposition home or self-care (01) ==
LOC: EMR 12:24 → CANBEDREQ 13:53 → EMR 15:28
DX: F15.10 Other stimulant abuse, uncomplicated (principal); R06.02 Shortness of breath
CPT/HCPCS: 36415; 36600; 71045; 80053; 80307; 81001; 82803; 83880; 84484; 85025; 94640; 94664; 96361; 96374; 96375; 99284; J1100; J7620; J8499

== ENCOUNTER 2019-05-22 14:26 | Emergency (ER) | payer MEDICAID ==
[~2019-05-22] VITALS: Ht 175.3 cm; Wt 59.0 kg
[2019-05-22 14:50] VITALS: BP 154/105
--- NOTE | 2019-05-22 14:50 | NUR ---
ED Nurse Note: pt walked in to ED due to vomiting after used meth. no vomiting noted. VSS. AAO x4. respirations even and non-labored noted. ambulatory with steady gait. will wait for the further order.
[2019-05-22 15:34] LABS: BASOPHILS % (AUTO) 2.8 % (0.0-2.0); EOSINOPHILS % (AUTO) 0.1 % (0.0-3.0); HEMATOCRIT 38.5 % (42.0-52.0); HEMOGLOBIN 13.2 G/DL (14.2-18.0); LYMPHOCYTES % (AUTO) 41.8 % (20.0-45.0); MEAN CORPUSCULAR VOLUME 86 FL (80-99); MONOCYTES % (AUTO) 8.8 % (1.0-10.0); NEUTROPHILS % (AUTO) 46.5 % (45.0-75.0); PLATELET COUNT 288 K/UL (150-450); RED BLOOD COUNT 4.48 M/UL (4.70-6.10); RED CELL DISTRIBUTION WIDTH 12.6 % (11.6-14.8); WHITE BLOOD COUNT 9.1 K/UL (4.8-10.8)
[2019-05-22 15:40] LABS: ANION GAP 9 mmol/L (5-15); BLOOD UREA NITROGEN 6 mg/dL (7-18); CARBON DIOXIDE 27 MMOL/L (21-32); CHLORIDE 92 MMOL/L (98-107); CREATININE 0.8 MG/DL (0.55-1.30); POTASSIUM 2.8 MMOL/L (3.5-5.1); SODIUM 127 MMOL/L (136-145)
[2019-05-22 15:46] LABS: CREATINE KINASE 425 U/L (26-308)
--- NOTE | 2019-05-22 15:49 | Emergency Room Report ---
History of Present Illness General Chief Complaint: Substance Abuse Source: Medical Record Present Illness HPI 29-year-old male presents to the emergency department complaining of shortness of breath, chest palpitations and paresthesias x1 day. Patient reports recent use of meth. He states that he also was recently treated for syphilis ago. Patient has a history of positive HIV he denies fevers or chills he denies hallucinations or delusions. Patient denies rashes he denies recent travel or ill contacts. Patient denies cough or hemoptysis. He denies chest pain. Denies muscle aches/cramps. No other aggravating or relieving factors at this time. Currently taking unknown anti-HIV med. Pt. reports some N/V. Denies abdominal pain. Denies blood in the Vomit or stool. denies asthma, COPD, or wheezing. Reports smoking meth. Denies IVDU. Reports psychiatric hx with need for a new therapist. Denies being on any anti-psych medications. Denies hallucinations, auditory hallucinations, visual disturbances, SI/HI. Allergies: Coded Allergies: No Known Allergies (Unverified , 04/08/19) Patient History Past Medical History: see triage record, psych hx, other - Drug Abuse Past Surgical History: unable to obtain Pertinent Family History: none, unable to obtain Social History: Reports: drug use - Meth- smokes Immunizations: UTD Reviewed Nursing Documentation: PMH: Agreed; PSxH: Agreed Nursing Documentation-PMH Past Medical History: No History, Except For Review of Systems All Other Systems: negative except mentioned in HPI Physical Exam Vital Signs Date Time Temp Pulse Resp B/P (MAP) Pulse Ox O2 Delivery O2 Flow Rate FiO2 05/22/19 14:41 99.1 97 20 154/105 (121) 99 Room Air Sp02 EP Interpretation: reviewed, normal General Appearance: no apparent distress, alert, GCS 15, non-toxic, mild distress, thin, Chronically Ill Head: normocephalic, atraumatic Eyes: bilateral eye normal inspection, bilateral eye PERRL ENT: hearing grossly normal, normal voice Neck: full range of motion, no meningismus, no bony tend Respiratory: chest non-tender, lungs clear, normal breath sounds, no rhonchi, no respiratory distress, no wheezing, speaking full sentences Cardiovascular #1: regular rate, rhythm, no edema, normal capillary refill Gastrointestinal: non tender, soft, non-distended, no guarding Musculoskeletal: back normal, gait/station normal, normal range of motion, non- tender Neurologic: alert, oriented x3, responsive, motor strength/tone normal, sensory intact, speech normal, grossly normal Psychiatric: judgement/insight normal, memory normal, no suicidal/homicidal ideation, no delusions, anxious - Pt is anxious and wants to talk excessively yet mumbles and is very soft spoken. inappropriately smiles intermittently that is not congruent with current conversation. PT. does not make eye contact, stares off in the distance often. Skin: no rash, normal color Lymphatic: no adenopathy Medical Decision Making PA Attestation Dr. Black is my supervising Physician whom patient management has been discussed with. Diagnostic Impression: Primary Impression: Amphetamine abuse Additional Impressions: Dehydration Hypokalemia ER Course 29-year-old male presents to the emergency department complaining of shortness of breath, chest palpitations and paresthesias x1 day. Patient reports recent use of meth. He states that he also was recently treated for syphilis ago. Patient has a history of positive HIV he denies fevers or chills he denies hallucinations or delusions. Patient denies rashes he denies recent travel or ill contacts. Patient denies cough or hemoptysis. He denies chest pain. Denies muscle aches/cramps. No other aggravating or relieving factors at this time. Currently taking unknown anti-HIV med. Pt. reports some N/V. Denies abdominal pain. Denies blood in the Vomit or stool. denies asthma, COPD, or wheezing. Reports smoking meth. Denies IVDU. Reports psychiatric hx with need for a new therapist. Denies being on any anti-psych medications. Denies hallucinations, auditory hallucinations, visual disturbances, SI/HI. Ddx considered but are not limited to [place], pneumonia, contusion, costochondritis , PE, ACS, Shoulder strain, Chest wall contusion. aortic dissection. Vital signs: are WNL, pt. is afebrile H&PE are most consistent with Anxious reaction after meth use in the setting of acute underlying psychiatric disorder. NAD, not posing as a threat of harm to himself or others. normal oxygen saturation, normal HR and resp. rate. ORDERS: - EK NSR -CBC: mild anemia otherwise WNL -CMP: Hypokalemia, Hyponatremia -CK: elevated -Troponins: WNL CXR: peribronchial thickening no obvious effusions or infiltrates. -UDS: Positive for Meth - CT Chest without Contrast: WNL per radiology. ED INTERVENTIONS: - IV NS 1 Liter x 2 -60 Meq KCl PO Pt. has been tolerating oral meds, fluids and food without vomiting. pt. continues to be NAD, non-toxic in appearance. -D/w pt. to stop using meth. offered Narcan- pt. declines and states he does not use opiates only meth. -I do not identify an emergent condition at this time. With current presentation , pt. is stable for close outpatient follow up and conservative treatment. D/ w pt. to return promptly to ED with worsening or new symptoms.- Pt. verbalizes' understanding and agreement with proposed treatment plan. DISCHARGE: At this time pt. is stable for d/c to home. Will provide printed patient care instructions, and any necessary prescriptions. Care plan and follow up instructions have been discussed with the patient prior to discharge. Labs Test 05/22/19 15:00 White Blood Count 9.1 K/UL (4.8-10.8) Red Blood Count 4.48 M/UL (4.70-6.10) Hemoglobin 13.2 G/DL (14.2-18.0) Hematocrit 38.5 % (42.0-52.0) Mean Corpuscular Volume 86 FL (80-99) Mean Corpuscular Hemoglobin 29.4 PG (27.0-31.0) Mean Corpuscular Hemoglobin Concent 34.2 G/DL (32.0-36.0) Red Cell Distribution Width 12.6 % (11.6-14.8) Platelet Count 288 K/UL (150-450) Mean Platelet Volume 7.2 FL (6.5-10.1) Neutrophils (%) (Auto) 46.5 % (45.0-75.0) Lymphocytes (%) (Auto) 41.8 % (20.0-45.0) Monocytes (%) (Auto) 8.8 % (1.0-10.0) Eosinophils (%) (Auto) 0.1 % (0.0-3.0) Basophils (%) (Auto) 2.8 % (0.0-2.0) Sodium Level 127 MMOL/L (136-145) Potassium Level 2.8 MMOL/L (3.5-5.1) Chloride Level 92 MMOL/L (98-107) Carbon Dioxide Level 27 MMOL/L (21-32) Anion Gap 9 mmol/L (5-15) Blood Urea Nitrogen 6 mg/dL (7-18) Creatinine 0.8 MG/DL (0.55-1.30) Estimat Glomerular Filtration Rate > 60 mL/min (>60) Glucose Level 90 MG/DL (74-106) Calcium Level 9.0 MG/DL (8.5-10.1) Total Creatine Kinase 425 U/L (26-308) Troponin I 0.000 ng/mL (0.000-0.056) Urine Opiates Screen Negative (NEGATIVE) Urine Barbiturates Screen Negative (NEGATIVE) Phencyclidine (PCP) Screen Negative (NEGATIVE) Urine Amphetamines Screen Positive (NEGATIVE) Urine Benzodiazepines Screen Negative (NEGATIVE) Urine Cocaine Screen Negative (NEGATIVE) Urine Marijuana (THC) Screen Negative (NEGATIVE) EKG Diagnostic Results EP Interpretation: Dr. Black Rate: normal - 91 Rhythm: NSR ST Segments: no acute changes ASA given to the pt in ED: No PA Scribe Text This Interpretation was scribed by CB Haines. Chest X-Ray Diagnostic Results Chest X-Ray Diagnostic Results : Chest X-Ray Ordered: Yes # of Views/Limited/Complete: 1 View Indication: Shortness of Breath EP Interpretation: Yes PA Xray: Interpretation reviewed, by supervising MD, and agrees with findings. Interpretation: no consolidation, no effusion, no pneumothorax, no acute cardiopulmonary disease, other - Peribronchial thickening Impression: Other - abnormal Electronically Signed by: Evangelina Haines PA-C CT/MRI/US Diagnostic Results CT/MRI/US Diagnostic Results : Imaging Test Ordered: CT Chest No Contrast Impression " Normal no pneumonia or other acute findings". Per official radiology report- Please see report for specific details. Last Vital Signs Date Time Temp Pulse Resp B/P (MAP) Pulse Ox O2 Delivery O2 Flow Rate FiO2 05/22/19 14:41 99.1 97 20 154/105 (121) 99 Room Air Disposition: HOME, SELF-CARE Condition: Stable Scripts Albuterol Sulfate* (ALBUTEROL SULFATE MDI*) 8.5 Gm Hfa.aer.ad 2 PUFF INH Q6H, #1 INH 0 Refills Prov: Evangelina Haines 05/22/19 Patient Instructions: Stimulant Use Disorder-Methamphetamines Additional Instructions: Stop using Meth. Follow up with outpatient mental health- resources are provided. Follow up with PCP and infectious disease specialist. Take medications as directed. Return to the emergency department with worsening or new symptoms. Evangelina Haines May 22, 2019 15:48
--- NOTE | 2019-05-22 16:40 | Diagnostic Imaging Report ---
Indication: Shortness of breath. Technique: Single AP view of the chest. Comparison: Chest radiograph dated 05/11/2019 Findings: The cardiomediastinal silhouette is within normal limits. There is no focal consolidation, pneumothorax or pleural effusion. There is diffuse peribronchial thickening. Osseous structures demonstrate no acute abnormality. IMPRESSION: Diffuse peribronchial thickening without airspace consolidation, which can be seen with infectious/inflammatory bronchitis.
[2019-05-22 17:30] VITALS: BP 136/87
--- NOTE | 2019-05-22 19:11 | NUR ---
HAND-OFF: Report given to LATISHA Santana.
--- NOTE | 2019-05-22 19:15 | NUR ---
ED Nurse Note: Recieved report to resume care, pt lying inb ed,a wake and alert, pt has bizzarre behaviors and ask same questions over and over, pt is in room eating raw garlic cloves, pt keeps calling nurse stating he has an infection but does not know where, pt can recall date, time and event, pt here for substance abuse, will continue to monitor, pt is recieving iv fluids in right arm.
[2019-05-22 19:25] VITALS: BP 131/80
[2019-05-22] MEDS ORDERED: ALBUTEROL SULF8.5 GM INH (21:10)
[2019-05-22 21:30] VITALS: BP 128/66
--- NOTE | 2019-05-22 21:45 | NUR ---
ER DISCHARGE NOTE: Patient is cleared to be discharged per ERMD, pt is aox4, on room air, with stable vital signs. pt was given dc and prescription instructions, pt was able to verbalize understanding, pt id band removed without complications. pt is able to ambulate with steady gait. pt took all belongings.
[2019-05-22 21:55] VITALS: BP 128/66
--- NOTE | 2019-05-23 11:33 | Diagnostic Imaging Report ---
Indication: Chest pain Technique: Continuous helical transaxial imaging of the chest was obtained from the thoracic inlet to the upper abdomen. No intravenous contrast was administered. Coronal 2-D reformats were also obtained. Total Dose length Product (DLP): 552.[address] Dose Index Volume (CTDIvol): 15.27 mGy Comparison: none Findings: The lungs are clear. Cardiac mediastinal structures are normal. There is no pleural effusion or infiltrate. No adenopathy appreciated. Visualized upper abdomen is unremarkable. IMPRESSION: Negative noncontrast CT chest The CT scanner at [facility] is accredited by the [employer] and the scans are performed using dose optimization techniques as appropriate to a performed exam including Automatic Exposure control.
== END 2019-05-22 21:55 | disposition home or self-care (01) ==
LOC: EMR 15:35
DX: F15.10 Other stimulant abuse, uncomplicated (principal); E86.0 Dehydration; E87.6 Hypokalemia; R20.2 Paresthesia of skin; B20 Human immunodeficiency virus [HIV] disease; D64.9 Anemia, unspecified; E87.1 Hypo-osmolality and hyponatremia
CPT/HCPCS: 36415; 71045; 71250; 80048; 80307; 82550; 84484; 85025; 93005; 96360; 96361; 99284; J8499

== ENCOUNTER 2019-05-31 15:18 | Emergency (ER) | payer MEDICAID ==
--- NOTE | 2019-05-31 15:20 | NUR ---
CALLED patient left before triage
== END 2019-05-31 15:30 | disposition left against medical advice (07) ==
LOC: EMR 15:22
DX: Z53.21 Procedure and treatment not carried out due to patient leaving prior to being seen by health care provider (principal)

== ENCOUNTER 2019-06-14 03:19 | Emergency (ER) | payer MEDICAID ==
[~2019-06-14] VITALS: Ht 172.7 cm; Wt 62.6 kg
--- NOTE | 2019-06-14 03:30 | NUR ---
ED Nurse Note: Pt walked in c/o generalized body pain since last night. Pt admits to using meth and drinking alcohol since yesterday. No stated medical history. Alert and oriented, verbally responsive. Breathing even and unlabored. VSS. Afebrile.
[2019-06-14 03:31] VITALS: BP 150/98
--- NOTE | 2019-06-14 03:50 | Emergency Room Report ---
History of Present Illness General Chief Complaint: Pain Source: Patient Present Illness HPI Is a 29-year-old male with no past medical history. He does have a history of polysubstance abuse but mostly crystal amphetamine patient presents with chest pain. He said when he does draw he gets chest pain. Is been having chest pain all day. No nausea no vomiting. No fever chills. Has some palpitation. Denies any other complaint. Allergies: Coded Allergies: No Known Allergies (Unverified , 04/08/19) Patient History Past Medical History: see triage record, old chart reviewed Past Surgical History: none Pertinent Family History: none Social History: Reports: drug use Immunizations: other Reviewed Nursing Documentation: PMH: Agreed; PSxH: Agreed Review of Systems Eye: Denies: eye pain, blurred vision ENT: Denies: ear pain, nose congestion, throat swelling Respiratory: Denies: cough, shortness of breath Cardiovascular: Reports: chest pain; Denies: palpitations Gastrointestinal: Denies: abdominal pain, diarrhea, nausea, vomiting Musculoskeletal: Denies: back pain, joint pain Skin: Denies: rash Neurological: Denies: headache, numbness Endocrine: Denies: increased thirst, increased urine Hematologic/Lymphatic: Denies: easy bruising All Other Systems: negative except mentioned in HPI Physical Exam Vital Signs Date Time Temp Pulse Resp B/P (MAP) Pulse Ox O2 Delivery O2 Flow Rate FiO2 06/14/19 03:22 98.4 106 16 150/98 (115) 98 Room Air Vitals normal Sp02 EP Interpretation: reviewed, normal General Appearance: well appearing, no apparent distress, alert Head: normocephalic, atraumatic Eyes: bilateral eye PERRL, bilateral eye EOMI ENT: hearing grossly normal, normal pharynx Neck: full range of motion, supple, no meningismus Respiratory: chest non-tender, lungs clear, normal breath sounds Cardiovascular #1: regular rate, rhythm, no murmur Gastrointestinal: normal bowel sounds, non tender, no mass, no organomegaly, no bruit, non-distended Musculoskeletal: back normal, gait/station normal, normal range of motion Psychiatric: mood/affect normal Medical Decision Making Diagnostic Impression: Primary Impression: Amphetamine abuse Additional Impression: Chest pain Qualified Codes: R07.9 - Chest pain, unspecified ER Course Presents with atypical chest pain. No evidence of ACS, PE, dissection. No suicidal thoughts homicidal thought. No criteria for 5150. EKG Diagnostic Results Rate: normal Rhythm: NSR ST Segments: no acute changes Rhythm Strip Diag. Results EP Interpretation: yes Rate: 85 Rhythm: NSR, no PVC's, no ectopy Last Vital Signs Date Time Temp Pulse Resp B/P (MAP) Pulse Ox O2 Delivery O2 Flow Rate FiO2 06/14/19 03:31 98.4 78 16 150/98 98 Room Air Status: improved Disposition: HOME, SELF-CARE Condition: Stable [facility]errals: [facility] ([facility]P) Additional Instructions: Stop using drugs. Follow-up with your doctor in 7 days. Return if worse. Alirio Gray MD Jun 14, 2019 03:50
--- NOTE | 2019-06-14 04:08 | NUR ---
ED Nurse Note: pt reports he has been having sexual activity with multiple male partner and is concerned that he may be exposed to STD. pt denies any sx at this time but states he wants to be treated/tested for it. pt states his pain started after using drugs and having sexual activity. will notify ermd regarding pt's concern.
[2019-06-14 04:52] VITALS: BP 150/98
--- NOTE | 2019-06-14 04:52 | NUR ---
ED Nurse Note: Pt cleared by ERMD for discharge. DC instructions was given and explained to pt and verbalized understanding of teachings. All medical deviecs such as ID band removed. Pt is AAO x4, ambulatory and left with all personal belongings.
--- NOTE | 2019-06-17 15:29 | Cardiology Report ---
APPROVED REPORT EKG Measurement Heart [id number] Normal sinus rhythm Normal ECG
== END 2019-06-14 04:52 | disposition home or self-care (01) ==
LOC: EMR 03:42
DX: R07.9 Chest pain, unspecified (principal); F15.10 Other stimulant abuse, uncomplicated
CPT/HCPCS: 84484; 93005; 99283

== ENCOUNTER 2019-07-11 13:49 | Emergency (ER) | payer MEDICAID ==
[~2019-07-11] VITALS: Ht 172.7 cm; Wt 59.0 kg
--- NOTE | 2019-07-11 14:01 | NUR ---
ED Nurse Note: PT WALKED IN TO ER TODAY FROM HOME. AOX4. PT C/O DIZZINESS X 2 DAYS AGO. PT DENIES NAUSEA OR VOMITING. GAIT STEADY IN ER. PT ADMITS TO SMOKING METH YESTERDAY AND ALCOHOL CONSUMPTION 2 DAYS AGO. PT CALM AND COOPERATIVE. TACHYCARDIC ON MONITOR - HR 107 - DR CORDERO AWARE.
[2019-07-11 14:02] VITALS: BP 133/82
--- NOTE | 2019-07-11 14:05 | NUR ---
ED Nurse Note: PT ALSO C/O RIGHT SIDED HEADACHE. DR CORDERO AWARE.
[2019-07-11] MEDS ORDERED: Ketorolac 30mg Inj IV ONE (14:15)
--- NOTE | 2019-07-11 14:23 | NUR ---
HAND-OFF: REPORT GIVEN TO LATISHA KAT. MEDICATIONS PULLED FROM PYXIS AND ENDORSED TO PRIMARY RNSHEY.
[2019-07-11 14:30] VITALS: BP 120/78
[2019-07-11 14:36] LABS: HEMATOCRIT 45.4 % (42.0-52.0); HEMOGLOBIN 14.7 G/DL (14.2-18.0); MEAN CORPUSCULAR VOLUME 88 FL (80-99); PLATELET COUNT 195 K/UL (150-450); RED BLOOD COUNT 5.14 M/UL (4.70-6.10); RED CELL DISTRIBUTION WIDTH 12.1 % (11.6-14.8)
--- NOTE | 2019-07-11 14:40 | NUR ---
ED Nurse Note: X-ray tech came to take x-ray of the chest. Patient refused x-ray. Patient verbalized that he gets a reaction from exposing from x-ray like muscle spasm. Expained the procedure and benefits but patient still refused. made aware
[2019-07-11 14:45] LABS: APPEARANCE,URINE CLEAR; BILIRUBIN, URINE NEGATIVE (NEGATIVE); COLOR,URINE PALE YELLOW; GLUCOSE, URINE (UA) NEGATIVE (NEGATIVE); KETONES,URINE NEGATIVE (NEGATIVE); LEUKOCYTE ESTERASE ,URINE NEGATIVE (NEGATIVE); NITRITE,URINE NEGATIVE (NEGATIVE); PH,URINE 6 (4.5-8.0); PROTEIN,URINE NEGATIVE (NEGATIVE); UROBILINOGEN,URINE NORMAL MG/DL (0.0-1.0)
[2019-07-11 15:00] VITALS: BP 120/90
[2019-07-11 15:08] LABS: ALANINE AMINOTRANSFERASE 38 U/L (12-78); ALBUMIN 4.3 G/DL (3.4-5.0); ALBUMIN/GLOBULIN RATIO 1.1 (1.0-2.7); ALKALINE PHOSPHATASE 78 U/L (46-116); ANION GAP 12 mmol/L (5-15); ASPARTATE AMINO TRANSFERASE 43 U/L (15-37); BILIRUBIN,TOTAL 0.4 MG/DL (0.2-1.0); BLOOD UREA NITROGEN 6 mg/dL (7-18); CALCIUM 9.1 MG/DL (8.5-10.1); CARBON DIOXIDE 25 MMOL/L (21-32); CHLORIDE 101 MMOL/L (98-107); CREATININE 1.1 MG/DL (0.55-1.30); POTASSIUM 3.6 MMOL/L (3.5-5.1); SODIUM 138 MMOL/L (136-145)
[2019-07-11 15:30] VITALS: BP 117/76
--- NOTE | 2019-07-11 15:30 | NUR ---
ED Nurse Note: Patient laying down and resting comfortably with no respiratory distress noted. Denies pain at this time. Able to follow commands.
[2019-07-11] MEDS ORDERED: IBUPROFEN600 MG ORAL (15:39)
[2019-07-11] MEDS ORDERED: AMOXICILLIN500 MG ORAL (15:39)
[2019-07-11 15:50] VITALS: BP 120/80
--- NOTE | 2019-07-11 16:41 | Emergency Room Report ---
History of Present Illness General Chief Complaint: Dizziness Source: Patient, Medical Record Present Illness HPI 29-year-old male presents ED for evaluation. States that he feels weak and tired. Thinks he is dehydrated. States he has a fever. Describes sore throat and cough. Denies nausea or vomiting. Denies diarrhea. Denies sick contacts or recent travel. History of HIV. States he is compliant with his medications. No other aggravating relieving factors. Denies any other associated symptoms Allergies: Coded Allergies: No Known Allergies (Unverified , 04/08/19) Patient History Past Medical History: none Past Surgical History: none Pertinent Family History: none Social History: Denies: smoking, alcohol use, drug use Immunizations: UTD Reviewed Nursing Documentation: PMH: Agreed; PSxH: Agreed Nursing Documentation-PMH Past Medical History: No History, Except For Review of Systems All Other Systems: negative except mentioned in HPI Physical Exam Vital Signs Date Time Temp Pulse Resp B/P (MAP) Pulse Ox O2 Delivery O2 Flow Rate FiO2 07/11/19 13:53 100.0 120 18 126/82 (97) 96 Room Air Sp02 EP Interpretation: reviewed, normal General Appearance: no apparent distress, alert, GCS 15, non-toxic Head: normocephalic, atraumatic Eyes: bilateral eye normal inspection, bilateral eye PERRL ENT: hearing grossly normal, normal pharynx, no angioedema, normal voice Neck: full range of motion, supple/symm/no masses Respiratory: chest non-tender, lungs clear, normal breath sounds, speaking full sentences Cardiovascular #1: regular rate, rhythm, no edema Cardiovascular #2: 2+ carotid (R), 2+ carotid (L), 2+ radial (R), 2+ radial (L) , 2+ dorsalis pedis (R), 2+ dorsalis pedis (L) Gastrointestinal: normal bowel sounds, non tender, soft, non-distended, no guarding, no rebound Rectal: deferred Genitourinary: normal inspection, no CVA tenderness Musculoskeletal: back normal, gait/station normal, normal range of motion, non- tender Neurologic: alert, oriented x3, responsive, motor strength/tone normal, sensory intact, speech normal Psychiatric: judgement/insight normal, memory normal, mood/affect normal, no suicidal/homicidal ideation Reflexes: 3+ bicep (R), 3+ bicep (L), 3+ tricep (R), 3+ tricep (L), 3+ knee (R) , 3+ knee (L) Lymphatic: no adenopathy Medical Decision Making Diagnostic Impression: Primary Impression: Flu-like symptoms ER Course Hospital Course 29-year-old male presents ED complaining of weakness, sore throat, cough and congestion differential diagnosis: Dehydration, pneumonia, pharyngitis Clinical course Patient placed on stretcher. On hand almond blancher. After initial history and physical I ordered labs, IV fluids, EKG, CXR, toradol Labs - no leukocytosis, electrolytes ok, UA negative Chest x-raypatient declined EKGnormal sinus rhythm no acute ischemic changes interpreted by me I discussed findings with patient. Labs unremarkable. Vitals stable. Patient can be discharged home. Given history of immunocompromise state will discharge with antibiotics. States he has a PMD I feel this is a highly complex case requiring extensive working including EKG/ Rhythm strip, Xray/CT/US, Blood/urine lab work, repeat exams while in ED, and administration of strong opiates/narcotics for pain control, admission to hospital or close patient follow up. Diagnosis - flu like symptoms Stable and discharged to home with prescriptions for amoxicillin, motrin. Followup with PMD. Return to ED if symptoms recur or worsen Labs Test 07/11/19 14:20 White Blood Count 8.0 K/UL (4.8-10.8) Red Blood Count 5.14 M/UL (4.70-6.10) Hemoglobin 14.7 G/DL (14.2-18.0) Hematocrit 45.4 % (42.0-52.0) Mean Corpuscular Volume 88 FL (80-99) Mean Corpuscular Hemoglobin 28.5 PG (27.0-31.0) Mean Corpuscular Hemoglobin Concent 32.3 G/DL (32.0-36.0) Red Cell Distribution Width 12.1 % (11.6-14.8) Platelet Count 195 K/UL (150-450) Mean Platelet Volume 9.7 FL (6.5-10.1) Neutrophils (%) (Auto) % (45.0-75.0) Lymphocytes (%) (Auto) % (20.0-45.0) Monocytes (%) (Auto) % (1.0-10.0) Eosinophils (%) (Auto) % (0.0-3.0) Basophils (%) (Auto) % (0.0-2.0) Differential Total Cells Counted 100 Neutrophils % (Manual) 41 % (45-75) Lymphocytes % (Manual) 36 % (20-45) Monocytes % (Manual) 21 % (1-10) Eosinophils % (Manual) 0 % (0-3) Basophils % (Manual) 1 % (0-2) Band Neutrophils 1 % (0-8) Platelet Estimate Adequate Platelet Morphology Normal Red Blood Cell Morphology Normal Urine Color Pale yellow Urine Appearance Clear Urine pH 6 (4.5-8.0) Urine Specific [place] 1.010 (1.005-1.035) Urine Protein Negative (NEGATIVE) Urine Glucose (UA) Negative (NEGATIVE) Urine Ketones Negative (NEGATIVE) Urine Blood Negative (NEGATIVE) Urine Nitrite Negative (NEGATIVE) Urine Bilirubin Negative (NEGATIVE) Urine Urobilinogen Normal MG/DL (0.0-1.0) Urine Leukocyte Esterase Negative (NEGATIVE) Sodium Level 138 MMOL/L (136-145) Potassium Level 3.6 MMOL/L (3.5-5.1) Chloride Level 101 MMOL/L (98-107) Carbon Dioxide Level 25 MMOL/L (21-32) Anion Gap 12 mmol/L (5-15) Blood Urea Nitrogen 6 mg/dL (7-18) Creatinine 1.1 MG/DL (0.55-1.30) Estimat Glomerular Filtration Rate > 60 mL/min (>60) Glucose Level 91 MG/DL (74-106) Calcium Level 9.1 MG/DL (8.5-10.1) Total Bilirubin 0.4 MG/DL (0.2-1.0) Aspartate Amino Transf (AST/SGOT) 43 U/L (15-37) Alanine Aminotransferase (ALT/SGPT) 38 U/L (12-78) Alkaline Phosphatase 78 U/L (46-116) Total Protein 8.2 G/DL (6.4-8.2) Albumin 4.3 G/DL (3.4-5.0) Globulin 3.9 g/dL Albumin/Globulin Ratio 1.1 (1.0-2.7) Urine Opiates Screen Negative (NEGATIVE) Urine Barbiturates Screen Negative (NEGATIVE) Phencyclidine (PCP) Screen Negative (NEGATIVE) Urine Amphetamines Screen Negative (NEGATIVE) Urine Benzodiazepines Screen Negative (NEGATIVE) Urine Cocaine Screen Negative (NEGATIVE) Urine Marijuana (THC) Screen Negative (NEGATIVE) EKG Diagnostic Results Rate: normal Rhythm: NSR ST Segments: no acute changes ASA given to the pt in ED: No Rhythm Strip Diag. Results EP Interpretation: yes Rhythm: NSR, no PVC's, no ectopy Last Vital Signs Date Time Temp Pulse Resp B/P (MAP) Pulse Ox O2 Delivery O2 Flow Rate FiO2 07/11/19 15:50 97.8 87 19 120/80 Room Air 07/11/19 15:00 100 Status: improved Disposition: HOME, SELF-CARE Condition: Stable Scripts Ibuprofen* (MOTRIN*) 600 Mg Tablet 600 MG ORAL Q8H PRN for For Pain, #30 TAB 0 Refills Prov: Sudeep Schulte MD 07/11/19 Amoxicillin* (AMOXIL*) 500 Mg Capsule 500 MG ORAL THREE TIMES A DAY, #21 CAP Prov: Sudeep Schulte MD 07/11/19 Referrals: Jovany Mejia [facility] Patient Instructions: Upper Respiratory Infection, Adult, Sffn-[id number] Sudeep Schulte MD Jul 11, 2019 16:41
== END 2019-07-11 15:50 | disposition home or self-care (01) ==
LOC: EMR 14:04
DX: J11.1 Influenza due to unidentified influenza virus with other respiratory manifestations (principal); B20 Human immunodeficiency virus [HIV] disease
CPT/HCPCS: 36415; 80053; 80307; 81003; 85007; 85025; 93005; 96361; 96374; J1885; Z7502; 99284

== ENCOUNTER 2019-08-05 07:20 | Emergency (ER) | payer MEDICAID ==
[~2019-08-05] VITALS: Ht 165.1 cm; Wt 45.4 kg
[~2019-08-05 07:20] MED LIST changes: +AMOXICILLIN500 MG ORAL
--- NOTE | 2019-08-05 07:34 | Emergency Room Report ---
History of Present Illness General Chief Complaint: Vomiting Source: Patient, Medical Record Present Illness HPI Patient is a 29-year-old male but in by family member after increased vomiting. Patient had recently been having increased vomiting after drinking [place]. He had prior history of methamphetamine abuse. He had nonbilious nonbloody emesis. Patient states that he had been drinking earlier in the day. History is markedly limited by poor patient cooperation. Allergies: Coded Allergies: No Known Allergies (Unverified , 04/08/19) Patient History Past Medical History: see triage record Reviewed Nursing Documentation: PMH: Agreed; PSxH: Agreed Nursing Documentation-PMH Past Medical History: No History, Except For Review of Systems All Other Systems: negative except mentioned in HPI Physical Exam Vital Signs Date Time Temp Pulse Resp B/P (MAP) Pulse Ox O2 Delivery O2 Flow Rate FiO2 08/05/19 07:29 98.1 93 18 158/103 (121) 100 Room Air Sp02 EP Interpretation: reviewed, normal General Appearance: normal inspection, well appearing, no apparent distress, alert, GCS 15 Head: atraumatic ENT: normal ENT inspection, hearing grossly normal, normal voice Neck: normal inspection, full range of motion, supple, no bony tend Respiratory: normal inspection, lungs clear, normal breath sounds, no respiratory distress, no retraction, no wheezing Cardiovascular #1: regular rate, rhythm, no edema Gastrointestinal: normal inspection, normal bowel sounds, non tender, soft, no guarding, no hernia Genitourinary: no CVA tenderness Musculoskeletal: normal inspection, back normal, normal range of motion Neurologic: normal inspection, alert, responsive, speech normal Psychiatric: normal inspection, judgement/insight normal, mood/affect normal Medical Decision Making Diagnostic Impression: Primary Impression: Tachycardia Additional Impressions: Dilutional hyponatremia Seizure ER Course Patient presented for increased confusion. Differential diagnosis include was not limited to electrolyte abnormality, meningitis, substance abuse among others. Because of complexity of patient's case laboratory tests and imaging studies were ordered. Patient's laboratory testing showed markedly diminished serum sodium which may be related to excess fluid intake. Patient was noted to have extremely dilute looking urine. Patient was started on IV fluids and he was noted to have seizure while in the emergency department. Patient did have some prior history of substance abuse he also had previously been on HIV medication. Patient was given a hypertonic saline due to seizure activity. Seizure resolved and patient was noted to have some improvement in mental status. Repeat laboratory testing showed improvement in serum sodium. The patient was discussed with Dr. Last who agreed to accept the patient in transfer. Labs Test 08/05/19 07:40 08/05/19 11:50 White Blood Count 8.7 K/UL (4.8-10.8) Red Blood Count 4.63 M/UL (4.70-6.10) Hemoglobin 13.2 G/DL (14.2-18.0) Hematocrit 39.8 % (42.0-52.0) Mean Corpuscular Volume 86 FL (80-99) Mean Corpuscular Hemoglobin 28.5 PG (27.0-31.0) Mean Corpuscular Hemoglobin Concent 33.2 G/DL (32.0-36.0) Red Cell Distribution Width 11.7 % (11.6-14.8) Platelet Count 266 K/UL (150-450) Mean Platelet Volume 8.6 FL (6.5-10.1) Neutrophils (%) (Auto) 50.3 % (45.0-75.0) Lymphocytes (%) (Auto) 37.1 % (20.0-45.0) Monocytes (%) (Auto) 10.3 % (1.0-10.0) Eosinophils (%) (Auto) 0.4 % (0.0-3.0) Basophils (%) (Auto) 2.0 % (0.0-2.0) Urine Color Pale yellow Urine Appearance Clear Urine pH 7 (4.5-8.0) Urine Specific [place] 1.005 (1.005-1.035) Urine Protein Negative (NEGATIVE) Urine Glucose (UA) Negative (NEGATIVE) Urine Ketones Negative (NEGATIVE) Urine Blood Negative (NEGATIVE) Urine Nitrite Negative (NEGATIVE) Urine Bilirubin Negative (NEGATIVE) Urine Urobilinogen Normal MG/DL (0.0-1.0) Urine Leukocyte Esterase Negative (NEGATIVE) Troponin I 0.000 ng/mL (0.000-0.056) Lipase 91 U/L (73-393) Urine Opiates Screen Negative (NEGATIVE) Urine Barbiturates Screen Negative (NEGATIVE) Phencyclidine (PCP) Screen Negative (NEGATIVE) Urine Amphetamines Screen Positive (NEGATIVE) Urine Benzodiazepines Screen Negative (NEGATIVE) Urine Cocaine Screen Negative (NEGATIVE) Urine Marijuana (THC) Screen Negative (NEGATIVE) Serum Alcohol < 3 mg/dL Sodium Level 134 MMOL/L (136-145) Potassium Level 3.3 MMOL/L (3.5-5.1) Chloride Level 98 MMOL/L (98-107) Carbon Dioxide Level 28 MMOL/L (21-32) Anion Gap 8 mmol/L (5-15) Blood Urea Nitrogen 4 mg/dL (7-18) Creatinine 0.8 MG/DL (0.55-1.30) Estimat Glomerular Filtration Rate > 60 mL/min (>60) Glucose Level 93 MG/DL (74-106) Calcium Level 8.8 MG/DL (8.5-10.1) Total Bilirubin 0.4 MG/DL (0.2-1.0) Aspartate Amino Transf (AST/SGOT) 38 U/L (15-37) Alanine Aminotransferase (ALT/SGPT) 25 U/L (12-78) Alkaline Phosphatase 75 U/L (46-116) Total Protein 7.2 G/DL (6.4-8.2) Albumin 3.8 G/DL (3.4-5.0) Globulin 3.4 g/dL Albumin/Globulin Ratio 1.1 (1.0-2.7) Last Vital Signs Date Time Temp Pulse Resp B/P (MAP) Pulse Ox O2 Delivery O2 Flow Rate FiO2 08/05/19 07:29 98.1 93 18 158/103 (121) 100 Room Air Status: improved Disposition: XFER SHT-TRM HOSP Condition: Serious [facility]errals: [facility] ([facility]P) Mario Nazario MD Aug 05, 2019 07:34
[2019-08-05] MEDS ORDERED: LORazepam Inj 2mg/ml 1ml IV ONE ×2 (07:45→09:15)
[2019-08-05] MEDS ORDERED: Thiamine HCl 100 MG in D5W 55 ML IVPB ONE (07:45)
--- NOTE | 2019-08-05 07:45 | NUR ---
ED Nurse Note:pt. came from home with parent with drugs withdrawals and diahrrea nausea urinal incintinance, pt. is ambulatory, A/Ox2, blood and urine sent to labs given iv fluids and meds
[2019-08-05 07:55] LABS: EOSINOPHILS % (AUTO) 0.4 % (0.0-3.0); HEMATOCRIT 39.8 % (42.0-52.0); HEMOGLOBIN 13.2 G/DL (14.2-18.0); LYMPHOCYTES % (AUTO) 37.1 % (20.0-45.0); MEAN CORPUSCULAR VOLUME 86 FL (80-99); MONOCYTES % (AUTO) 10.3 % (1.0-10.0); NEUTROPHILS % (AUTO) 50.3 % (45.0-75.0); PLATELET COUNT 266 K/UL (150-450); RED BLOOD COUNT 4.63 M/UL (4.70-6.10); RED CELL DISTRIBUTION WIDTH 11.7 % (11.6-14.8); WHITE BLOOD COUNT 8.7 K/UL (4.8-10.8)
[2019-08-05 08:01] LABS: APPEARANCE,URINE CLEAR; BILIRUBIN, URINE NEGATIVE (NEGATIVE); COLOR,URINE PALE YELLOW; GLUCOSE, URINE (UA) NEGATIVE (NEGATIVE); KETONES,URINE NEGATIVE (NEGATIVE); LEUKOCYTE ESTERASE ,URINE NEGATIVE (NEGATIVE); NITRITE,URINE NEGATIVE (NEGATIVE); PH,URINE 7 (4.5-8.0); PROTEIN,URINE NEGATIVE (NEGATIVE); UROBILINOGEN,URINE NORMAL MG/DL (0.0-1.0)
[2019-08-05 08:16] VITALS: BP 155/103
[2019-08-05 08:45] LABS: ANION GAP 14 mmol/L (5-15); BLOOD UREA NITROGEN 3 mg/dL (7-18); CALCIUM 8.3 MG/DL (8.5-10.1); CARBON DIOXIDE 23 MMOL/L (21-32); CHLORIDE 86 MMOL/L (98-107); CREATININE 0.7 MG/DL (0.55-1.30); SODIUM 122 MMOL/L (136-145)
[2019-08-05 09:02] LABS: ALANINE AMINOTRANSFERASE 26 U/L (12-78); ALBUMIN 4.1 G/DL (3.4-5.0); ALBUMIN/GLOBULIN RATIO 1.1 (1.0-2.7); ALKALINE PHOSPHATASE 76 U/L (46-116); ASPARTATE AMINO TRANSFERASE 33 U/L (15-37); BILIRUBIN,TOTAL 0.3 MG/DL (0.2-1.0)
--- NOTE | 2019-08-05 09:05 | NUR ---
ED Nurse Note:pt. started to have seizures, ER MD notified ,given ativan IV and 3%nachl solusion, rail were padded per protocol, pt. is having urinary incontinance -condom cath was placed for urine collection, continue monitor
[2019-08-05] MEDS ORDERED: NaCl 3% 500ml 500 ML IV ONE (09:06)
[2019-08-05] MEDS ORDERED: NaCl 3% 500ml 250 ML IV ONE (09:15)
[2019-08-05 09:48] VITALS: BP 153/122
--- NOTE | 2019-08-05 09:59 | NUR ---
ED Nurse Note:given po potassium , pt. having large urine output
--- NOTE | 2019-08-05 11:15 | NUR ---
ED Nurse Note: Patient asleep in bed. Siderails remained with pads. Hypertonic soln running via right forearm IV 20g @ 30ml. IV site remained intact without redness, swelling or pain.
[2019-08-05 11:22] VITALS: BP 125/53
--- NOTE | 2019-08-05 12:01 | NUR ---
ED Nurse Note:sent blood to labs
[2019-08-05 12:06] VITALS: BP 114/68
[2019-08-05 12:13] LABS: ANION GAP 8 mmol/L (5-15); BLOOD UREA NITROGEN 4 mg/dL (7-18); CALCIUM 8.8 MG/DL (8.5-10.1); CARBON DIOXIDE 28 MMOL/L (21-32); CHLORIDE 98 MMOL/L (98-107); CREATININE 0.8 MG/DL (0.55-1.30); POTASSIUM 3.3 MMOL/L (3.5-5.1); SODIUM 134 MMOL/L (136-145)
[2019-08-05 12:17] LABS: ALANINE AMINOTRANSFERASE 25 U/L (12-78); ALBUMIN 3.8 G/DL (3.4-5.0); ALBUMIN/GLOBULIN RATIO 1.1 (1.0-2.7); ALKALINE PHOSPHATASE 75 U/L (46-116); ASPARTATE AMINO TRANSFERASE 38 U/L (15-37); BILIRUBIN,TOTAL 0.4 MG/DL (0.2-1.0)
--- NOTE | 2019-08-05 12:49 | NUR ---
ED Nurse Note: mom (cell)[phone] & (home)[phone].
[2019-08-05 13:40] VITALS: BP 124/68
--- NOTE | 2019-08-05 14:00 | NUR ---
ED Nurse Note:called report to [facility] given to Ana VILLARREAL, pt. was taken by transportation personal
[2019-08-05 14:08] VITALS: BP 124/68
== END 2019-08-05 14:10 | disposition short-term general hospital (02) ==
LOC: EMR 07:30
DX: R00.0 Tachycardia, unspecified (principal); E87.1 Hypo-osmolality and hyponatremia; R56.9 Unspecified convulsions; B20 Human immunodeficiency virus [HIV] disease
CPT/HCPCS: 36415; 80053; 80307; 81003; 83690; 84484; 85025; 96361; 96365; 96367; 96375; 96376; G0480; J2405; Z7502; 99285; J7030; J8499

== ENCOUNTER 2019-12-20 03:56 | Emergency (ER) | payer MEDICAID ==
[~2019-12-20] VITALS: Ht 172.7 cm; Wt 59.0 kg
--- NOTE | 2019-12-20 04:15 | NUR ---
ED Nurse Note: ERMD at bedside.
[2019-12-20 04:20] VITALS: BP 153/107
--- NOTE | 2019-12-20 04:20 | NUR ---
ED Nurse Note: Patient walked in from home d/t chest pain radiating to left arm/shoulder. Patient aao x 4 and ambulatory with steady gait. Patient stated he has chest pain 6/10 started today and left upper arm/shoulder hurts as well. Patient stated he took meth today, unknown time and dose. Patient placed on sign language instructor and changed into gown. No acute distress noted.
--- NOTE | 2019-12-20 04:21 | Emergency Room Report ---
History of Present Illness General Chief Complaint: General Complaint Source: Patient Present Illness HPI Disclaimer: Please note that this report is being documented using [employer] technology. This can lead to erroneous entry secondary to incorrect interpretation by the dictating instrument. HPI: 29-year-old male with history of substance abuse presents for evaluation of chest pain and body wide spasms. Symptoms present approximately 1 day. He states he was drinking alcohol and using methamphetamines yesterday. Today he is complaining of diffuse spasms over his back, chest and lower extremities. He states he sometimes get chest pain when he uses amphetamines. Describes it as a squeezing around his entire chest wall and back. Not associated with movements. No exacerbating or relieving factors noted. Cannot recall specific time of onset. Denies other drug use. Denies shortness of breath, fever, chills, cough, nasal congestion, abdominal pain, nausea, vomiting. He is also asking for refill of his Truvada which he states he takes prophylactically given his high risk behaviors. PMH: Substance abuse PSH: Reviewed Allergies: None reported Social Hx: Methamphetamine use, alcohol use Allergies: Coded Allergies: No Known Allergies (Unverified , 12/20/19) Review of Systems All Other Systems: negative except mentioned in HPI Physical Exam General: Awake and alert, no acute distress HEENT: NC/AT. EOMI. Cardiovascular: RRR. S1 and S2 normal. No murmur appreciated Resp: Normal work of breathing. No cough, wheezing or crackles appreciated Abdomen: Abdomen is soft, nondistended. Nontender Skin: Intact. No abrasions, laceration or rash over the exposed skin MSK: Normal tone and bulk. Moving all extremities. No obvious deformity. Neuro: Awake and alert. Most the time he answers questions appropriately. Sometimes tangential in his thinking. He is redirectable. Denies SI/HI. Does not appear to be hallucinating. Back/Spine: No midline tenderness in the cervical, thoracic or lumbosacral spine. There is moderate paraspinal tenderness in the cervical spine and upper thoracic spine as well as over the trapezius in general. Diffuse spasticity. Medical Decision Making Diagnostic Impression: Primary Impression: Amphetamine abuse Additional Impressions: Hypokalemia Muscle spasm ER Course This a 29-year-old male history of substance use presenting for evaluation of body wide spasticity and chest pain. Differential includes was not limited to substance abuse, spasticity, electrolyte abnormality, ACS, vasospasm, Prinzmetal angina, dehydration to name a few. Start a broad metabolic infectious and cardiac work-up. Will give IV fluids, Toradol. Laboratory Tests Test 12/20/19 04:10 12/20/19 04:20 Urine Opiates Screen Negative (NEGATIVE) Urine Barbiturates Screen Negative (NEGATIVE) Phencyclidine (PCP) Screen Negative (NEGATIVE) Urine Amphetamines Screen Positive (NEGATIVE) H Urine Benzodiazepines Screen Negative (NEGATIVE) Urine Cocaine Screen Negative (NEGATIVE) Urine Marijuana (THC) Screen Negative (NEGATIVE) White Blood Count 8.2 K/UL (4.8-10.8) Red Blood Count 4.80 M/UL (4.70-6.10) Hemoglobin 13.7 G/DL (14.2-18.0) L Hematocrit 40.8 % (42.0-52.0) L Mean Corpuscular Volume 85 FL (80-99) Mean Corpuscular Hemoglobin 28.5 PG (27.0-31.0) Mean Corpuscular Hemoglobin Concent 33.6 G/DL (32.0-36.0) Red Cell Distribution Width 13.1 % (11.6-14.8) Platelet Count 222 K/UL (150-450) Mean Platelet Volume 8.6 FL (6.5-10.1) Neutrophils (%) (Auto) 37.9 % (45.0-75.0) L Lymphocytes (%) (Auto) 43.0 % (20.0-45.0) Monocytes (%) (Auto) 16.5 % (1.0-10.0) H Eosinophils (%) (Auto) 0.3 % (0.0-3.0) Basophils (%) (Auto) 2.4 % (0.0-2.0) H Sodium Level 133 MMOL/L (136-145) L Potassium Level 3.2 MMOL/L (3.5-5.1) L Chloride Level 95 MMOL/L (98-107) L Carbon Dioxide Level 25 MMOL/L (21-32) Anion Gap 14 mmol/L (5-15) Blood Urea Nitrogen 3 mg/dL (7-18) L Creatinine 0.8 MG/DL (0.55-1.30) Estimate Glomerular Filtration Rate > 60 mL/min (>60) Glucose Level 82 MG/DL (74-106) Calcium Level 9.1 MG/DL (8.5-10.1) Total Bilirubin 0.3 MG/DL (0.2-1.0) Aspartate Amino Transferase (AST) 20 U/L (15-37) Alanine Aminotransferase (ALT) 22 U/L (12-78) Alkaline Phosphatase 72 U/L (46-116) Troponin I 0.003 ng/mL (0.000-0.056) Total Protein 7.6 G/DL (6.4-8.2) Albumin 4.1 G/DL (3.4-5.0) Globulin 3.5 g/dL Albumin/Globulin Ratio 1.2 (1.0-2.7) Salicylates Level 0.3 ug/mL (2.8-20) L Acetaminophen Level < 2 MCG/ML (10-30) L Serum Alcohol 20 mg/dL EKG Diagnostic Results EKG Time: 04:35 Rate: normal Rhythm: NSR ST Segments: no acute changes Other Impression Irregular baseline due to patient motion makes it difficult to interpret. Sinus rhythm with a normal axis normal intervals. There are anterior Q waves seen on prior EKG of 07/11/2019. Rhythm Strip Diag. Results Rhythm Strip Time: 04:35 EP Interpretation: yes Rate: 90s Rhythm: NSR, no PVC's, no ectopy Chest X-Ray Diagnostic Results Chest X-Ray Diagnostic Results : Chest X-Ray Ordered: Yes # of Views/Limited/Complete: 1 View Indication: Chest Pain EP Interpretation: Yes Interpretation: no consolidation, no effusion, no pneumothorax, no acute cardiopulmonary disease Impression: No acute disease Electronically Signed by: Electronically signed by Dr. Hero Vieira Reevaluation Time: 05:30 Reevaluation Impression EKG unchanged from previous. Labs show slightly low potassium at 3.2 however labs are otherwise largely within normal limits.Troponin negative. Tox screen is positive for amphetamines consistent with patient history and small elevation in alcohol again consistent. Likely experiencing pain and spasm from his recent amphetamine use and possibly from hypokalemia. Will replete potassium. Patient will finish his dehydration and be referred to clinic to follow-up on an outpatient basis. He should have his potassium levels rechecked within a week. Will discharge on oral potassium supplements and will also refill his Truvada prescription. Provided information in his discharge paperwork regarding addiction and resources to contact an outpatient basis. He can return to the emergency department any new or worsening symptoms. Disposition: HOME, SELF-CARE Condition: Stable Scripts Potassium Chloride* (K-DUR*) 20 Meq Tab.er.prt 20 MEQ ORAL TWICE A DAY for 5 Days, #10 TAB 0 Refills Prov: Hero Vieira MD 12/20/19 Emtricitabine/Tenofovir (Truvada 200 mg-300 mg Tablet) 1 Each Tablet 1 TAB ORAL DAILY for 30 Days, #30 TAB Prov: Hero Vieira MD 12/20/19 Referrals: [facility] (PCP) Hero Vieira MD Dec 20, 2019 04:21
[2019-12-20] MEDS ORDERED: Ketorolac 30mg Inj IV ONE (04:30)
[2019-12-20 04:59] LABS: ANION GAP 14 mmol/L (5-15); BASOPHILS % (AUTO) 2.4 % (0.0-2.0); BLOOD UREA NITROGEN 3 mg/dL (7-18); CALCIUM 9.1 MG/DL (8.5-10.1); CARBON DIOXIDE 25 MMOL/L (21-32); CHLORIDE 95 MMOL/L (98-107); CREATININE 0.8 MG/DL (0.55-1.30); EOSINOPHILS % (AUTO) 0.3 % (0.0-3.0); HEMATOCRIT 40.8 % (42.0-52.0); HEMOGLOBIN 13.7 G/DL (14.2-18.0); MEAN CORPUSCULAR VOLUME 85 FL (80-99); MONOCYTES % (AUTO) 16.5 % (1.0-10.0); NEUTROPHILS % (AUTO) 37.9 % (45.0-75.0); PLATELET COUNT 222 K/UL (150-450); POTASSIUM 3.2 MMOL/L (3.5-5.1); RED CELL DISTRIBUTION WIDTH 13.1 % (11.6-14.8); SODIUM 133 MMOL/L (136-145); WHITE BLOOD COUNT 8.2 K/UL (4.8-10.8)
[2019-12-20 05:03] LABS: ALANINE AMINOTRANSFERASE 22 U/L (12-78); ALBUMIN 4.1 G/DL (3.4-5.0); ALBUMIN/GLOBULIN RATIO 1.2 (1.0-2.7); ALKALINE PHOSPHATASE 72 U/L (46-116); ASPARTATE AMINO TRANSFERASE 20 U/L (15-37); BILIRUBIN,TOTAL 0.3 MG/DL (0.2-1.0)
[2019-12-20] MEDS ORDERED: POTASSIUM CHLO20 ME1 ORAL (05:37)
[2019-12-20] MEDS ORDERED: TRUVADA1 TAB ORAL (05:37)
[2019-12-20 06:10] VITALS: BP 139/99
--- NOTE | 2019-12-20 06:10 | NUR ---
ER DISCHARGE NOTE: Patient is cleared to be discharged per ERMD, pt is aox4, on room air, with stable vital signs. pt was given dc and prescription instructions, pt was able to verbalize understanding, pt id band and iv site removed intact without complications. pt is able to ambulate with steady gait. pt took all belongings. pt stable upon discharge.
--- NOTE | 2019-12-20 09:04 | Diagnostic Imaging Report ---
Indication: Chest pain Technique: One view of the chest Comparison: 05/22/2019 Findings: Lungs and pleural spaces are clear. Heart size is normal. No significant interim change Impression: No acute process
== END 2019-12-20 06:10 | disposition home or self-care (01) ==
LOC: EMR 04:16
DX: F15.10 Other stimulant abuse, uncomplicated (principal); E87.6 Hypokalemia; M62.838 Other muscle spasm; R07.89 Other chest pain
CPT/HCPCS: 36415; 71045; 80053; 80307; 84484; 85025; 93005; 96361; 96374; G0480; G0481; J1885; J7030; Z7502; 99284; J8499

== ENCOUNTER 2020-01-21 23:15 | Emergency (ER) | payer MEDICAID ==
[~2020-01-21] VITALS: Ht 167.6 cm; Wt 72.6 kg
[~2020-01-21 23:15] MED LIST changes: +POTASSIUM CHLO20 ME1 ORAL
--- NOTE | 2020-01-21 23:25 | Emergency Room Report ---
History of Present Illness General Chief Complaint: Overdose Source: Patient Present Illness HPI 29-year-old male history of methamphetamine abuse presented for methamphetamine intoxication. Apparently patient smoked methamphetamine and then had EMS called as he was feeling short of breath and anxious. On arrival patient was tachycardic. And appeared anxious. He denied any pain nausea or vomiting to me. He has a history of HIV and has been seen for methamphetamine intoxication in the past. Allergies: Coded Allergies: No Known Allergies (Unverified , 12/20/19) COVID-19 Screening Contact w/high risk pt: No Recent Travel to affected area: No Experienced COVID-19 symptoms?: No Patient History Reviewed Nursing Documentation: PMH: Agreed; PSxH: Agreed Nursing Documentation-PMH Past Medical History: No History, Except For Review of Systems All Other Systems: negative except mentioned in HPI Physical Exam Vital Signs Date Time Temp Pulse Resp B/P (MAP) Pulse Ox O2 Delivery O2 Flow Rate FiO2 01/21/20 23:18 98.2 105 18 132/78 (96) 94 Room Air Sp02 EP Interpretation: reviewed, normal General Appearance: well appearing, other - Anxious appearing Head: normocephalic, atraumatic Eyes: bilateral eye PERRL, bilateral eye EOMI ENT: hearing grossly normal, moist mucus membranes Neck: full range of motion, supple Respiratory: lungs clear, normal breath sounds, no rhonchi, no retraction, no wheezing, other - Patient tachypneic Cardiovascular #1: normal peripheral pulses, no murmur, tachycardia Gastrointestinal: non tender, soft, non-distended, no guarding Neurologic: alert, oriented x3, no focal defects Skin: normal color, warm/dry Medical Decision Making Diagnostic Impression: Primary Impression: Amphetamine abuse ER Course Patient presented anxious and tachycardic after using methamphetamine. Initially he did appear anxious and p.o. Ativan was given however he became more anxious and uncooperative in the ER so he did require haloperidol and Ativan in addition to Benadryl. An IV was placed and IV fluids were given, basic laboratory studies were sent and patient placed on cardiac monitoring. Will continue to observe patient overnight until clinically sober. After additional Ativan Haldol and Benadryl patient was improved. Tachycardia improved, patient alert ambulatory in no distress. Stable for discharge. Patient encouraged to avoid methamphetamine use. Laboratory Tests Test 01/21/20 23:58 White Blood Count 8.0 K/UL (4.8-10.8) Red Blood Count 5.32 M/UL (4.70-6.10) Hemoglobin 15.5 G/DL (14.2-18.0) Hematocrit 45.3 % (42.0-52.0) Mean Corpuscular Volume 85 FL (80-99) Mean Corpuscular Hemoglobin 29.1 PG (27.0-31.0) Mean Corpuscular Hemoglobin Concent 34.2 G/DL (32.0-36.0) Red Cell Distribution Width 13.0 % (11.6-14.8) Platelet Count 202 K/UL (150-450) Mean Platelet Volume 9.2 FL (6.5-10.1) Neutrophils (%) (Auto) 42.5 % (45.0-75.0) L Lymphocytes (%) (Auto) 47.5 % (20.0-45.0) H Monocytes (%) (Auto) 7.4 % (1.0-10.0) Eosinophils (%) (Auto) 0.2 % (0.0-3.0) Basophils (%) (Auto) 2.4 % (0.0-2.0) H Sodium Level 143 MMOL/L (136-145) Potassium Level 3.3 MMOL/L (3.5-5.1) L Chloride Level 102 MMOL/L (98-107) Carbon Dioxide Level 18 MMOL/L (21-32) L Blood Urea Nitrogen 8 mg/dL (7-18) Creatinine 1.4 MG/DL (0.55-1.30) H Estimated Glomerular Filtration Rate > 60 mL/min (>60) Glucose Level 120 MG/DL (74-106) H Calcium Level 10.1 MG/DL (8.5-10.1) Total Bilirubin 0.2 MG/DL (0.2-1.0) Aspartate Amino Transferase (AST) 20 U/L (15-37) Alanine Aminotransferase (ALT) 30 U/L (12-78) Alkaline Phosphatase 80 U/L (46-116) Total Protein 8.9 G/DL (6.4-8.2) H Albumin 4.8 G/DL (3.4-5.0) Globulin 4.1 g/dL Albumin/Globulin Ratio 1.2 (1.0-2.7) Lipase 156 U/L (73-393) Urine Opiates Screen Negative (NEGATIVE) Urine Barbiturates Screen Negative (NEGATIVE) Phencyclidine (PCP) Screen Negative (NEGATIVE) Urine Amphetamines Screen Positive (NEGATIVE) H Urine Benzodiazepines Screen Negative (NEGATIVE) Urine Cocaine Screen Negative (NEGATIVE) Urine Marijuana (THC) Screen Negative (NEGATIVE) Serum Alcohol < 3 mg/dL Rhythm Strip Diag. Results EP Interpretation: yes Rate: 115 Rhythm: other - Sinus tachycardia Last Vital Signs Date Time Temp Pulse Resp B/P (MAP) Pulse Ox O2 Delivery O2 Flow Rate FiO2 01/21/20 23:18 98.2 105 18 132/78 (96) 94 Room Air Status: improved Disposition: HOME, SELF-CARE Condition: Stable Lavelle Oliver M.D. Jan 21, 2020 23:25
[2020-01-21 23:30] VITALS: BP 132/78
[2020-01-21] MEDS ORDERED: LORazepam 1mg tab ORAL ONE (23:30)
[2020-01-21] MEDS ORDERED: LORazepam Inj 2mg/ml 1ml ONE (23:36)
[2020-01-21] MEDS ORDERED: DiphenhydrAMINE 50mg/ml Inj ONE (23:37)
[2020-01-21] MEDS ORDERED: Haloperidol 5mg/ml Inj ONE (23:37)
[2020-01-21] MEDS ORDERED: LORazepam Inj 2mg/ml 1ml IM ONE (23:45)
[2020-01-21] MEDS ORDERED: DiphenhydrAMINE 50mg/ml Inj IM ONE (23:45)
[2020-01-21] MEDS ORDERED: Haloperidol 5mg/ml Inj IM ONE (23:45)
[2020-01-22 00:14] LABS: BASOPHILS % (AUTO) 2.4 % (0.0-2.0); EOSINOPHILS % (AUTO) 0.2 % (0.0-3.0); HEMATOCRIT 45.3 % (42.0-52.0); HEMOGLOBIN 15.5 G/DL (14.2-18.0); LYMPHOCYTES % (AUTO) 47.5 % (20.0-45.0); MEAN CORPUSCULAR VOLUME 85 FL (80-99); MONOCYTES % (AUTO) 7.4 % (1.0-10.0); NEUTROPHILS % (AUTO) 42.5 % (45.0-75.0); PLATELET COUNT 202 K/UL (150-450); RED BLOOD COUNT 5.32 M/UL (4.70-6.10)
[2020-01-22 00:29] LABS: ALANINE AMINOTRANSFERASE 30 U/L (12-78); ALBUMIN 4.8 G/DL (3.4-5.0); ALBUMIN/GLOBULIN RATIO 1.2 (1.0-2.7); ALKALINE PHOSPHATASE 80 U/L (46-116); ASPARTATE AMINO TRANSFERASE 20 U/L (15-37); BILIRUBIN,TOTAL 0.2 MG/DL (0.2-1.0); BLOOD UREA NITROGEN 8 mg/dL (7-18); CALCIUM 10.1 MG/DL (8.5-10.1); CARBON DIOXIDE 18 MMOL/L (21-32); CHLORIDE 102 MMOL/L (98-107); CREATININE 1.4 MG/DL (0.55-1.30); POTASSIUM 3.3 MMOL/L (3.5-5.1); SODIUM 143 MMOL/L (136-145)
--- NOTE | 2020-01-22 00:33 | Diagnostic Imaging Report ---
EXAM: XR Chest, 1 View CLINICAL HISTORY: SOB TECHNIQUE: Frontal view of the chest. COMPARISON: 12/20/2019 FINDINGS: Lungs: No consolidation or mass. Pleural space: No acute findings Heart: No cardiomegaly. Bones/joints: No acute findings. IMPRESSION: No acute cardiopulmonary process.
[2020-01-22 01:00] VITALS: BP 122/73
[2020-01-22 03:00] VITALS: BP 125/75
[2020-01-22 03:50] VITALS: BP 127/76
== END 2020-01-22 04:25 | disposition home or self-care (01) ==
LOC: EDUNIT# 23:15 → EDBD 23:15 → EMR 23:30
DX: F15.10 Other stimulant abuse, uncomplicated (principal); B20 Human immunodeficiency virus [HIV] disease; R00.0 Tachycardia, unspecified
CPT/HCPCS: 36415; 71045; 80053; 80307; 83690; 85025; 96360; 96372; G0480; J1200; J1630; J7030; Z7502; 99284

== ENCOUNTER 2020-02-01 07:47 | Emergency (ER) | payer MEDICAID ==
[~2020-02-01] VITALS: Ht 167.6 cm; Wt 63.5 kg
--- NOTE | 2020-02-01 07:47 | Emergency Room Report ---
History of Present Illness General Chief Complaint: Left Arm Pain Source: Patient Present Illness HPI 29-year-old male presents with left arm pain started yesterday, no known aggravating or alleviating factors severity is mild achy in nature, patient endorses using amphetamines yesterday, no fevers no chills no cough no congestion patient presents for evaluation Allergies: Coded Allergies: No Known Allergies (Unverified , 12/20/19) Patient History Past Medical History: see triage record Social History: Reports: smoking, alcohol use, drug use Reviewed Nursing Documentation: PMH: Agreed; PSxH: Agreed Review of Systems All Other Systems: negative except mentioned in HPI Physical Exam Vital Signs Date Time Temp Pulse Resp B/P (MAP) Pulse Ox O2 Delivery O2 Flow Rate FiO2 02/01/20 07:43 98.2 110 20 132/68 (89) 98 Room Air General Appearance: well appearing, no apparent distress Head: normocephalic, atraumatic ENT: hearing grossly normal, normal voice Neck: full range of motion, supple Respiratory: no respiratory distress, speaking full sentences Musculoskeletal: other - Left upper extremity: 2+ radial pulse, radial median ulnar nerve intact, cap refill less than 3 seconds, 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 Patient continues to scratch himself. Differential diagnosis includes arm contusion, generalized muscle ache Exam is completely unremarkable disposition home with return precautions Disposition: HOME, SELF-CARE Condition: Stable Referrals: [facility]. [facility] Patient Instructions: Muscle Cramps and Spasms, [id number], Stimulant Use Disorder-Amphetamines Additional Instructions: The patient was provided with discharge instructions, notified to follow-up with a primary care doctor and or specialist in the next 24-48 hours, and to return to the ED if they have worsening of their symptoms. Please note that this report is being documented using [employer] technology. This can lead to erroneous entry secondary to incorrect interpretation by the dictating instrument. Juve Ascencio MD Feb 01, 2020 07:47
[2020-02-01 08:00] VITALS: BP 132/68
[2020-02-01] MEDS ORDERED: Acetaminophen 500mg (ES) tab ORAL ONE (08:00)
--- NOTE | 2020-02-01 08:04 | NUR ---
ED Nurse Note:pt. was BIBA from the street with c/o left arm pain, no injury reported, pt. was examed by ERMD, pain meds provided, with food and fluids
[2020-02-01 08:25] VITALS: BP 132/68
--- NOTE | 2020-02-01 08:25 | NUR ---
ER DISCHARGE NOTE:homeless d/c form [facility] Patient is cleared to be discharged per ERMD, pt is aox4, on room air, with stable vital signs. pt was given dc instructions, pt was able to verbalize understanding, pt is able to ambulate with steady gait. pt took all belongings.
== END 2020-02-01 08:25 | disposition home or self-care (01) ==
LOC: EDBD 07:47 → EMR 07:54
DX: M79.602 Pain in left arm (principal); F15.10 Other stimulant abuse, uncomplicated; F17.200 Nicotine dependence, unspecified, uncomplicated
CPT/HCPCS: 99282

== ENCOUNTER 2020-04-24 22:03 | Emergency (ER) | payer MEDICAID ==
[~2020-04-24] VITALS: Ht 165.1 cm; Wt 72.6 kg
--- NOTE | 2020-04-24 22:21 | Emergency Room Report ---
History of Present Illness General Chief Complaint: Chest Pain Source: Patient Present Illness HPI Disclaimer: Please note that this report is being documented using DRAGON technology. This can lead to erroneous entry secondary to incorrect interpretation by the dictating instrument. HPI: 30-year-old male presents for evaluation of palpitations. He has been using methamphetamine throughout the day last use approximately 10 PM. He states he feels his heart beating fast and felt some numbness on the left side of his body as well. Now he is complaining of headache over the right side but denies any visual changes. No loss of consciousness. Denies any shortness of breath, cough, fever, chills, nausea, vomiting, diarrhea. No known sick contacts. Denies alcohol use today. PMH: Substance abuse PSH: Reviewed Allergies: None reported Social Hx: Methamphetamine use, alcohol use Allergies: Coded Allergies: No Known Allergies (Unverified , 12/20/19) COVID-19 Screening Contact w/high risk pt: No Recent Travel to affected area: No Experienced COVID-19 symptoms?: No Review of Systems All Other Systems: limited Physical Exam General: Awake and alert, no acute distress HEENT: NC/AT. EOMI. Cardiovascular: Mildly tachycardic. S1 and S2 normal. No murmur appreciated Resp: Normal work of breathing. No cough, wheezing or crackles appreciated Abdomen: Abdomen is soft, nondistended. Nontender Skin: Intact. No abrasions, laceration or rash over the exposed skin MSK: Normal tone and bulk. Moving all extremities. No obvious deformity. Neuro: Awake and alert. Mentating appropriately. Medical Decision Making Diagnostic Impression: Primary Impression: Substance abuse ER Course Is a 30-year-old male with a history of methamphetamine use presenting for evaluation of palpitations and headache. Differential includes was not limited to dehydration, substance abuse, electrolyte abnormality, anxiety, ACS, angina, vasospasm, muscle cramps, generalized headache, migraine headache to name a few. He is overall well-appearing though largely tachycardic consistent with the patient's history. He has been in the emergency department similar complaints in the past. His EKG shows sinus tachycardia without ischemic changes. Chest x-ray unremarkable. Positive for amphetamines consistent with patient's history. Troponin negative. Other labs within normal limits. Heart rate improved after patient was given Benadryl for his slight agitation. He is hydrating orally at bedside both without difficulty. He is stable for outpatient follow-up. No further intervention is indicated in the emergency department at this time. I will refer him to outpatient resources for drug abuse. Instructed to return to the ED with any new or worsening symptoms.. Laboratory Tests Test 04/24/20 22:25 04/24/20 22:45 White Blood Count 5.4 K/UL (4.8-10.8) Red Blood Count 5.31 M/UL (4.70-6.10) Hemoglobin 14.7 G/DL (14.2-18.0) Hematocrit 47.0 % (42.0-52.0) Mean Corpuscular Volume 89 FL (80-99) Mean Corpuscular Hemoglobin 27.7 PG (27.0-31.0) Mean Corpuscular Hemoglobin Concent 31.3 G/DL (32.0-36.0) L Red Cell Distribution Width 13.6 % (11.6-14.8) Platelet Count 223 K/UL (150-450) Mean Platelet Volume 9.0 FL (6.5-10.1) Neutrophils (%) (Auto) 44.9 % (45.0-75.0) L Lymphocytes (%) (Auto) 40.6 % (20.0-45.0) Monocytes (%) (Auto) 12.3 % (1.0-10.0) H Eosinophils (%) (Auto) 0.1 % (0.0-3.0) Basophils (%) (Auto) 2.0 % (0.0-2.0) Sodium Level 134 MMOL/L (136-145) L Potassium Level 3.7 MMOL/L (3.5-5.1) Chloride Level 100 MMOL/L (98-107) Carbon Dioxide Level 25 MMOL/L (21-32) Anion Gap 9 mmol/L (5-15) Blood Urea Nitrogen 8 mg/dL (7-18) Creatinine 1.1 MG/DL (0.55-1.30) Estimated Glomerular Filtration Rate > 60 mL/min (>60) Glucose Level 112 MG/DL (74-106) H Calcium Level 9.0 MG/DL (8.5-10.1) Total Bilirubin 0.5 MG/DL (0.2-1.0) Aspartate Amino Transferase (AST) 20 U/L (15-37) Alanine Aminotransferase (ALT) 20 U/L (12-78) Alkaline Phosphatase 78 U/L (46-116) Troponin I 0.000 ng/mL (0.000-0.056) Total Protein 8.4 G/DL (6.4-8.2) H Albumin 5.0 G/DL (3.4-5.0) Globulin 3.4 g/dL Albumin/Globulin Ratio 1.5 (1.0-2.7) Urine Opiates Screen Negative (NEGATIVE) Urine Barbiturates Screen Negative (NEGATIVE) Phencyclidine (PCP) Screen Negative (NEGATIVE) Urine Amphetamines Screen Positive (NEGATIVE) H Urine Benzodiazepines Screen Negative (NEGATIVE) Urine Cocaine Screen Negative (NEGATIVE) Urine Marijuana (THC) Screen Negative (NEGATIVE) EKG Diagnostic Results EKG Time: 22:18 Rate: tachycardiac Rhythm: NSR ST Segments: no acute changes Other Impression Sinus tachycardia, normal axis, normal intervals, no ST segment changes. Rhythm Strip Diag. Results Rhythm Strip Time: 22:18 EP Interpretation: yes Rate: 100s Rhythm: NSR, no PVC's, no ectopy Chest X-Ray Diagnostic Results Chest X-Ray Diagnostic Results : Chest X-Ray Ordered: Yes # of Views/Limited/Complete: 1 View Indication: Chest Pain EP Interpretation: Yes Interpretation: no consolidation, no effusion, no pneumothorax, no acute cardiopulmonary disease Impression: No acute disease Electronically Signed by: Electronically signed by Dr. Hero Vieira Disposition: HOME, SELF-CARE Condition: Stable Referrals: [facility] (PCP) Hero Vieira MD Apr 24, 2020 22:21
[2020-04-24 22:26] VITALS: BP 152/88
--- NOTE | 2020-04-24 22:26 | NUR ---
ED Nurse Note: pt ambulated into ed from home [place] CP with numbness on right arm x 1 day. Pt states that he consumed methamphetamines yesterday and uses drugs daily. Pt aao x 4, ambulatory with steady gait. Pt HR elevated, ERMD aware. Pt states he has a SEARS 8/10. ERMD at bedside. EKG obtained and given to ERMD. IV line intiated, blood drawn and sent to lab. Addendum: 04/24/20 at 2304 by [facility] ED Nurse Note: pt ambulated into ed from home [place] CP with numbness on right arm x 1 day. Pt states that he consumed methamphetamines yesterday and uses drugs daily. Pt aao x 4, ambulatory with steady gait. Pt HR elevated, ERMD aware. Pt states he has a SEARS 8/10. Pt placed on nuclear monitoring technician, resting in bed, VSS. ERMD at bedside. EKG obtained and given to ERMD. IV line intiated, blood drawn and sent to lab.
[2020-04-24] MEDS ORDERED: Acetaminophen 500mg (ES) tab ORAL ONE (22:30)
--- NOTE | 2020-04-24 22:30 | NUR ---
ED Nurse Note: all mediations administered, pt tolerated well no ss of distress noted.
--- NOTE | 2020-04-24 22:35 | NUR ---
ED Nurse Note: xray at bedside
[2020-04-24 22:41] LABS: EOSINOPHILS % (AUTO) 0.1 % (0.0-3.0); HEMOGLOBIN 14.7 G/DL (14.2-18.0); LYMPHOCYTES % (AUTO) 40.6 % (20.0-45.0); MEAN CORPUSCULAR VOLUME 89 FL (80-99); MONOCYTES % (AUTO) 12.3 % (1.0-10.0); NEUTROPHILS % (AUTO) 44.9 % (45.0-75.0); PLATELET COUNT 223 K/UL (150-450); RED BLOOD COUNT 5.31 M/UL (4.70-6.10); RED CELL DISTRIBUTION WIDTH 13.6 % (11.6-14.8); WHITE BLOOD COUNT 5.4 K/UL (4.8-10.8)
--- NOTE | 2020-04-24 22:50 | NUR ---
ED Nurse Note: Urine obtained and sent to lab.
[2020-04-24 22:52] LABS: ANION GAP 9 mmol/L (5-15); BLOOD UREA NITROGEN 8 mg/dL (7-18); CARBON DIOXIDE 25 MMOL/L (21-32); CHLORIDE 100 MMOL/L (98-107); CREATININE 1.1 MG/DL (0.55-1.30); POTASSIUM 3.7 MMOL/L (3.5-5.1); SODIUM 134 MMOL/L (136-145)
[2020-04-24 22:57] LABS: ALANINE AMINOTRANSFERASE 20 U/L (12-78); ALBUMIN/GLOBULIN RATIO 1.5 (1.0-2.7); ALKALINE PHOSPHATASE 78 U/L (46-116); ASPARTATE AMINO TRANSFERASE 20 U/L (15-37); BILIRUBIN,TOTAL 0.5 MG/DL (0.2-1.0)
[2020-04-24 23:30] VITALS: BP 144/90
[2020-04-24 23:40] VITALS: BP 144/90
--- NOTE | 2020-04-25 08:45 | Diagnostic Imaging Report ---
Indication: Chest pain Technique: XRAY Chest 1v Comparison: 01/22/2020 Findings: Heart size and mediastinal contours are within normal limits for AP technique. There is no focal airspace consolidation, pneumothorax or pleural effusion. Osseous structures demonstrate no acute abnormality. Impression: No radiographic evidence of acute cardiopulmonary disease.
== END 2020-04-24 23:40 | disposition home or self-care (01) ==
LOC: EMR 22:15
DX: F15.10 Other stimulant abuse, uncomplicated (principal); Z72.89 Other problems related to lifestyle
CPT/HCPCS: 36415; 71045; 80053; 80307; 84484; 85025; 93005; Z7502; 99283

== ENCOUNTER 2020-05-18 11:08 | Emergency (ER) | payer MEDICAID ==
[~2020-05-18] VITALS: Ht 172.7 cm; Wt 59.0 kg
[2020-05-18 11:12] VITALS: BP 144/92
--- NOTE | 2020-05-18 11:22 | NUR ---
ED Nurse Note: Pt walked in due to left arm numbness with tingling sensation since this morning. Denies injury or trauma. Pt admits on using meth today. AAO x4, ambulatory with no respiratory distress. Speaks in clear sentences.
[2020-05-18 11:30] VITALS: BP 139/90
--- NOTE | 2020-05-18 11:30 | NUR ---
ER DISCHARGE NOTE: Patient is cleared to be discharged per ERMD, ERMD aware of HR 110. pt is aox4, on room air, with stable vital signs. pt was given dc instructions, pt was able to verbalize understanding, pt id band removed. pt is able to ambulate with steady gait. pt took all belongings.
--- NOTE | 2020-05-18 11:32 | Emergency Room Report ---
History of Present Illness General Chief Complaint: Pain Source: Patient Present Illness HPI Patient is a 30-year-old male past medical history of drug abuse who presents to the ER complaining of pain to his left bicep. He states that it started today. He denies any trauma. He denies any fever or chills. He denies any focal weakness. He denies any chest pain or shortness of breath. He denies taking any medications for the pain. Allergies: Coded Allergies: No Known Allergies (Unverified , 12/20/19) COVID-19 Screening Contact w/high risk pt: No Recent Travel to affected area: No Experienced COVID-19 symptoms?: No COVID-19 Testing performed INSPECTOR WREATH: No Patient History Reviewed Nursing Documentation: PMH: Agreed; PSxH: Agreed Nursing Documentation-PMH Past Medical History: No History, Except For Review of Systems All Other Systems: negative except mentioned in HPI Physical Exam Vital Signs Date Time Temp Pulse Resp B/P (MAP) Pulse Ox O2 Delivery O2 Flow Rate FiO2 05/18/20 11:12 98.6 120 18 144/92 (109) 98 Room Air Sp02 EP Interpretation: reviewed, normal General Appearance: no apparent distress, alert, GCS 15, non-toxic Head: normocephalic, atraumatic Eyes: bilateral eye normal inspection, bilateral eye PERRL ENT: hearing grossly normal, normal pharynx, no angioedema, normal voice Neck: full range of motion, supple/symm/no masses Respiratory: chest non-tender, lungs clear, normal breath sounds, speaking full sentences Cardiovascular #1: regular rate, rhythm, no edema Gastrointestinal: normal bowel sounds, non tender, soft, non-distended, no guarding, no rebound Rectal: deferred Genitourinary: no CVA tenderness Musculoskeletal: normal range of motion, no calf tenderness, no lower extremity edema, other - Patient has track calvo on his left forearm with no surrounding erythema or swelling the area that he complains of pain is the left bicep which is not tender to palpation has no swelling has normal range of motion no erythema no axillary lymphadenopathy 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 I have explained that their evaluation and treatment in the emergency department today is an important step towards them achieving better health but that their evaluation today is not intended to replace further evaluation and treatment by a physician in their local clinic. I have explained that while the current findings suggest no immediate life threatening emergency they will require further evaluation and treatment by a physician of their choice in their area. They understand that it will be necessary for them to review the final reports of their ED visit with their clinic physician. We have reviewed indications for return to the Emergency Department. I have explained that additional time may need to pass and/or additional testing as an outpatient may be necessary before a definitive diagnosis can be made. They tell me they are willing to follow up as instructed within the timeframe I recommend. They appear to understand what we discussed. Additionally they understand that if they are unable to be seen by an outpatient physician they are welcome, and in fact should, return to the Emergency Department for a repeat evaluation. The patient is stable at time of discharge. Last Vital Signs Date Time Temp Pulse Resp B/P (MAP) Pulse Ox O2 Delivery O2 Flow Rate FiO2 05/18/20 11:12 98.6 120 18 144/92 (109) 98 Room Air Disposition: HOME, SELF-CARE Condition: Stable Referrals: [facility] Jovany Carreon [facility]. [facility] Patient Instructions: Muscle Pain, Adult Additional Instructions: The patient was provided with discharge instructions, notified to follow-up with a primary care doctor and or specialist in the next 24-48 hours, and to return to the ED if they have worsening of their symptoms. Please note that this report is being documented using [employer] technology. This can lead to erroneous entry secondary to incorrect interpretation by the dictating instrument. Mag Mott M.D. May 18, 2020 11:32
== END 2020-05-18 11:30 | disposition home or self-care (01) ==
LOC: EMR 11:30
DX: M79.10 Myalgia, unspecified site (principal)
CPT/HCPCS: 99281

== ENCOUNTER 2020-08-24 14:16 | Emergency (ER) | payer MEDICAID ==
[~2020-08-24] VITALS: Ht 172.7 cm; Wt 59.0 kg
--- NOTE | 2020-08-24 14:30 | NUR ---
ED Nurse Note: Pt walked into ED for inflammation and knot-like chest pain with temporal pain for 4 days. Pt states he took cocaine this past TH and SAT. Pt is alert and orientedx4, ambulatory. Pt has been seen by KARINE.
--- NOTE | 2020-08-24 14:37 | Emergency Room Report ---
History of Present Illness General Chief Complaint: Chest Pain Source: Patient Present Illness HPI Disclaimer: Please note that this report is being documented using [employer] technology. This can lead to erroneous entry secondary to incorrect interpretation by the dictating instrument. HPI: 30-year-old male history of substance abuse presents for evaluation of chest pain and muscle cramps. Patient states he has been using methamphetamines and cocaine for several days. He reports of pain in his left armpit and a cramping over his right yazdanism. Denies wheezing or shortness of breath but sometimes feels a heaviness on his chest. He has been seen at 2 other emergency department prior to today's evaluation. He states he has difficulty sleeping. He reports pain in the right yazdanism when opening closing his jaw. No trauma reported. Has been using Tylenol but states he wants something for "inflammation." Denies cough, shortness of breath, fever, chills, abdominal pain, nausea, vomiting or diarrhea. PMH: Substance abuse PSH: Denied Allergies: Denied Social Hx: Substance abuse Allergies: Coded Allergies: No Known Allergies (Unverified , 12/20/19) COVID-19 Screening Contact w/high risk pt: No Recent Travel to affected area: No Experienced COVID-19 symptoms?: No COVID-19 Testing performed CHUCK BONER: No Nursing Documentation-PMH Past Medical History: No Stated History Review of Systems All Other Systems: negative except mentioned in HPI Physical Exam Vital Signs Date Time Temp Pulse Resp B/P (MAP) Pulse Ox O2 Delivery O2 Flow Rate FiO2 08/24/20 14:18 97.3 84 15 122/75 (91) 100 Room Air General: Awake and alert, no acute distress HEENT: NC/AT. EOMI. PERRLA. No tenderness over the parotid. No tenderness over the temples. No obvious contusion, hematoma or signs of severe trauma. Chest wall: Nontender, no palpable deformities. No crepitus. Cardiovascular: RRR. S1 and S2 normal. No murmur appreciated Resp: Normal work of breathing. No cough, wheezing or crackles appreciated Abdomen: Abdomen is soft, nondistended. Nontender Skin: Intact. No abrasions, laceration or rash over the exposed skin MSK: Normal tone and bulk. Moving all extremities. No obvious deformity. Neuro: Awake and alert. Mentating appropriately. Medical Decision Making Diagnostic Impression: Primary Impression: Substance abuse Additional Impressions: Chest pain Muscle cramps ER Course 30-year-old male presenting for evaluation of chest discomfort and right temporal pain. Differential includes known to dehydration, electrolyte abnormality, substance abuse effects, ACS, arrhythmia among others. EKG is nonischemic. No signs of myocarditis or pericarditis. No infiltrate or other abnormalities appreciated on chest x-ray. Labs including troponin within normal limits. Likely suspect muscle cramping secondary to stimulant use causing prolonged jaw clenching. Will continue on Tylenol and Motrin. Patient can follow-up on an outpatient basis. Counseled him on the dangers of substance abuse and referred to outpatient treatment centers. Stable for outpatient follow-up. Laboratory Tests Test 08/24/20 14:45 08/24/20 14:58 Sodium Level 137 MMOL/L (136-145) Potassium Level 4.4 MMOL/L (3.5-5.1) Chloride Level 104 MMOL/L (98-107) Carbon Dioxide Level 24 MMOL/L (21-32) Anion Gap 9 mmol/L (5-15) Blood Urea Nitrogen 7 mg/dL (7-18) Creatinine 0.9 MG/DL (0.55-1.30) Estimated Glomerular Filtration Rate > 60 mL/min (>60) Glucose Level 105 MG/DL (74-106) Calcium Level 9.2 MG/DL (8.5-10.1) Total Bilirubin 0.7 MG/DL (0.2-1.0) Aspartate Amino Transferase (AST) 49 U/L (15-37) H Alanine Aminotransferase (ALT) 33 U/L (12-78) Alkaline Phosphatase 69 U/L (46-116) Troponin I 0.002 ng/mL (0.000-0.056) Total Protein 7.8 G/DL (6.4-8.2) Albumin 4.3 G/DL (3.4-5.0) Globulin 3.5 g/dL Albumin/Globulin Ratio 1.2 (1.0-2.7) White Blood Count 8.0 K/UL (4.8-10.8) Red Blood Count 4.92 M/UL (4.70-6.10) Hemoglobin 13.8 G/DL (14.2-18.0) L Hematocrit 43.9 % (42.0-52.0) Mean Corpuscular Volume 89 FL (80-99) Mean Corpuscular Hemoglobin 28.1 PG (27.0-31.0) Mean Corpuscular Hemoglobin Concent 31.5 G/DL (32.0-36.0) L Red Cell Distribution Width 13.8 % (11.6-14.8) Platelet Count 195 K/UL (150-450) Mean Platelet Volume 10.2 FL (6.5-10.1) H Neutrophils (%) (Auto) 40.0 % (45.0-75.0) L Lymphocytes (%) (Auto) 37.9 % (20.0-45.0) Monocytes (%) (Auto) 18.0 % (1.0-10.0) H Eosinophils (%) (Auto) 2.8 % (0.0-3.0) Basophils (%) (Auto) 1.3 % (0.0-2.0) EKG Diagnostic Results Troponin ordered: Yes When was troponin ordered?: Aug 24, 2020 EKG Time: 14:31 Rate: normal Rhythm: NSR ST Segments: no acute changes Other Impression Sinus rhythm, normal axis, normal intervals, no ST segment changes Rhythm Strip Diag. Results Rhythm Strip Time: 14:31 EP Interpretation: yes Rate: 85 Rhythm: NSR, no PVC's, no ectopy Chest X-Ray Diagnostic Results Chest X-Ray Diagnostic Results : Chest X-Ray Ordered: Yes # of Views/Limited/Complete: 1 View Indication: Chest Pain Interpretation: no consolidation, no effusion, no pneumothorax, no acute cardiopulmonary disease Impression: No acute disease Electronically Signed by: Electronically signed by Dr. Hero Vieira MD Last Vital Signs Date Time Temp Pulse Resp B/P (MAP) Pulse Ox O2 Delivery O2 Flow Rate FiO2 08/24/20 14:18 97.3 84 15 122/75 (91) 100 Room Air Disposition: HOME, SELF-CARE Condition: Stable Scripts Ibuprofen* (MOTRIN*) 600 Mg Tablet 600 MG ORAL Q6H PRN for For Pain, #30 TAB 0 Refills Prov: Hero Vieira MD 08/24/20 Referrals: [facility] (PCP) Hero Vieira MD Aug 24, 2020 14:37
[2020-08-24 14:45] VITALS: BP 125/76
--- NOTE | 2020-08-24 15:02 | Diagnostic Imaging Report ---
EXAM: XR Chest, 1 View CLINICAL HISTORY: CP TECHNIQUE: Frontal view of the chest. COMPARISON: 04/24/2020 FINDINGS: Lungs: No significant abnormality. No consolidation. Pleural space: No significant abnormality. No pneumothorax. Heart: No significant abnormality. No cardiomegaly. Mediastinum: No significant abnormality. Bones/joints: No acute osseous abnormality. IMPRESSION: No acute cardiopulmonary process.
[2020-08-24 15:03] LABS: ANION GAP 9 mmol/L (5-15); BLOOD UREA NITROGEN 7 mg/dL (7-18); CALCIUM 9.2 MG/DL (8.5-10.1); CARBON DIOXIDE 24 MMOL/L (21-32); CHLORIDE 104 MMOL/L (98-107); CREATININE 0.9 MG/DL (0.55-1.30); POTASSIUM 4.4 MMOL/L (3.5-5.1); SODIUM 137 MMOL/L (136-145)
[2020-08-24 15:05] LABS: BASOPHILS % (AUTO) 1.3 % (0.0-2.0); EOSINOPHILS % (AUTO) 2.8 % (0.0-3.0); HEMATOCRIT 43.9 % (42.0-52.0); HEMOGLOBIN 13.8 G/DL (14.2-18.0); LYMPHOCYTES % (AUTO) 37.9 % (20.0-45.0); MEAN CORPUSCULAR VOLUME 89 FL (80-99); PLATELET COUNT 195 K/UL (150-450); RED BLOOD COUNT 4.92 M/UL (4.70-6.10); RED CELL DISTRIBUTION WIDTH 13.8 % (11.6-14.8)
[2020-08-24 15:08] LABS: ALANINE AMINOTRANSFERASE 33 U/L (12-78); ALBUMIN 4.3 G/DL (3.4-5.0); ALBUMIN/GLOBULIN RATIO 1.2 (1.0-2.7); ALKALINE PHOSPHATASE 69 U/L (46-116); ASPARTATE AMINO TRANSFERASE 49 U/L (15-37); BILIRUBIN,TOTAL 0.7 MG/DL (0.2-1.0)
[2020-08-24] MEDS ORDERED: IBUPROFEN600 M1 ORAL (15:16)
[2020-08-24 15:25] VITALS: BP 136/73
--- NOTE | 2020-08-24 15:29 | NUR ---
ER DISCHARGE NOTE: Patient is cleared to be discharged per ERMD, pt is aox4, on room air, with stable vital signs. pt was given dc and prescription instructions, pt was able to verbalize understanding, pt id band and iv site removed without complications. pt is able to ambulate with steady gait. pt took all belongings. Pt educated on cocaine and meth abuse and provided list of clinics.
== END 2020-08-24 15:30 | disposition home or self-care (01) ==
LOC: EMR 14:27
DX: F14.10 Cocaine abuse, uncomplicated (principal); F15.10 Other stimulant abuse, uncomplicated; R07.89 Other chest pain; R25.2 Cramp and spasm
CPT/HCPCS: 36415; 71045; 80053; 84484; 85025; 93005; Z7502; 99283

== ENCOUNTER 2020-09-18 11:04 | Emergency (ER) | payer MEDICAID ==
[~2020-09-18] VITALS: Ht 172.7 cm; Wt 59.0 kg
[~2020-09-18 11:04] MED LIST changes: +IBUPROFEN600 M1 ORAL
[2020-09-18 11:30] VITALS: BP 134/99
[2020-09-18 12:43] VITALS: BP 128/86
--- NOTE | 2020-09-18 14:38 | Emergency Room Report ---
History of Present Illness General Chief Complaint: Pain Source: Patient Present Illness HPI 30-year-old male well-known to this emergency department for many visits related to methamphetamine use here because "I just feel weird." Patient admits to using methamphetamine last night and this morning. Says that he had sex with a new male partner but said that he used a condom. Patient is repeatedly roaming around the halls and refuses to elaborate further on his reason for this visit. Allergies: Coded Allergies: No Known Allergies (Unverified , 12/20/19) COVID-19 Screening Contact w/high risk pt: No Recent Travel to affected area: No Experienced COVID-19 symptoms?: No COVID-19 Testing performed E COMMERCE ANALYST: No COVID-19 Screening: Negative COVID-19 Nursing Documentation-[facility] Past Medical History: No Stated History Review of Systems All Other Systems: negative except mentioned in HPI Physical Exam Vital Signs Date Time Temp Pulse Resp B/P (MAP) Pulse Ox O2 Delivery O2 Flow Rate FiO2 09/18/20 11:11 98.1 110 16 134/99 (111) 95 Room Air Sp02 EP Interpretation: reviewed, normal General Appearance: no apparent distress, alert, non-toxic Head: normocephalic, atraumatic Eyes: bilateral eye normal inspection, bilateral eye PERRL ENT: hearing grossly normal, normal pharynx, no angioedema, normal voice Neck: full range of motion, supple/symm/no masses Respiratory: chest non-tender, lungs clear, normal breath sounds, speaking full sentences Cardiovascular #1: regular rate, rhythm, no edema Cardiovascular #2: 2+ carotid (R), 2+ carotid (L), 2+ radial (R), 2+ radial (L), 2+ dorsalis pedis (R), 2+ dorsalis pedis (L) Gastrointestinal: normal bowel sounds, non tender, soft, non-distended, no guarding, no rebound Rectal: deferred Genitourinary: normal inspection, no CVA tenderness Musculoskeletal: back normal, normal range of motion, gait/station normal, non- tender Neurologic: alert, motor strength/tone normal, oriented x3, sensory intact, responsive, speech normal Psychiatric: memory normal, no suicidal/homicidal ideation, other - Odd affect, erratic behavior Lymphatic: no adenopathy Medical Decision Making Diagnostic Impression: Primary Impression: Pain Additional Impression: Amphetamine abuse ER Course Chest x-ray: No infiltrate/effusion. Mediastinum within normal limits. No focal consolidation. No free air under the diaphragm. No bony abnormalities 30-year-old male here because "my body feels weird." Patient was hemodynamically stable and had completely normal vital signs in the emergency department. He was in no distress whatsoever. Patient mated to using methamphetamine last night and this morning. Symptoms are likely secondary to meth. Patient and appeared to be clinically sober but had very odd behavior. He was requesting to be discharged. He denied homicidal or suicidal ideation. Discharged in stable condition. Last Vital Signs Date Time Temp Pulse Resp B/P (MAP) Pulse Ox O2 Delivery O2 Flow Rate FiO2 09/18/20 12:43 98.1 68 18 128/86 99 Room Air Disposition: HOME, SELF-CARE Condition: Stable Referrals: [facility]P) [facility] Jovany Carreon [facility]. [facility] Valeriano Easley M.D. Sep 18, 2020 14:38
--- NOTE | 2020-09-18 15:15 | Diagnostic Imaging Report ---
Indication: Reason For Exam: SOB Technique: Single AP view of the chest. Comparison: Chest radiograph Dated 08/24/2020 Findings: The cardiomediastinal silhouette is unchanged in appearance. No new airspace consolidation. No pneumothorax or pleural effusion. No acute osseous abnormality. IMPRESSION: No radiographic evidence of acute cardiopulmonary process.
== END 2020-09-18 12:43 | disposition home or self-care (01) ==
LOC: EMR 11:55
DX: R52 Pain, unspecified (principal); F15.10 Other stimulant abuse, uncomplicated
CPT/HCPCS: 71045; Z7502; 99283

== ENCOUNTER 2020-10-11 08:35 | Emergency (ER) | payer MEDICAID ==
[~2020-10-11] VITALS: Ht 175.3 cm; Wt 65.8 kg
[2020-10-11 09:03] VITALS: BP 160/80
[2020-10-11 09:08] VITALS: BP 160/80
--- NOTE | 2020-10-11 09:24 | Emergency Room Report ---
History of Present Illness General Chief Complaint: General Complaint Present Illness HPI Disclaimer: Please note that this report is being documented using [employer] technology. This can lead to erroneous entry secondary to incorrect interpretation by the dictating instrument. HPI: 30-year-old male history of HIV, methamphetamine abuse presents after using methamphetamine. Patient had no specific complaints in the ER. He states he also drank "black seed oil ". Dates mild body aches but really again could not have any specific complaints in the ER and he could not describe how he wanted me to help him. Is alert and oriented x3. He was in no nausea no vomiting he denied any active chest pain to me, no shortness of breath. Allergies: Coded Allergies: No Known Allergies (Unverified , 12/20/19) COVID-19 Screening Contact w/high risk pt: No Recent Travel to affected area: No Experienced COVID-19 symptoms?: No COVID-19 Testing performed SOCIAL SERVICES COUNSELOR: No Patient History Reviewed Nursing Documentation: PMH: Agreed; PSxH: Agreed Review of Systems All Other Systems: negative except mentioned in HPI Physical Exam Vital Signs Date Time Temp Pulse Resp B/P (MAP) Pulse Ox O2 Delivery O2 Flow Rate FiO2 10/11/20 08:56 97.9 110 18 160/80 (106) 98 Room Air Sp02 EP Interpretation: reviewed, normal General Appearance: well appearing, no apparent distress Head: normocephalic, atraumatic Eyes: bilateral eye PERRL, bilateral eye EOMI ENT: hearing grossly normal, moist mucus membranes Neck: full range of motion, supple Respiratory: lungs clear, normal breath sounds, no rhonchi, no respiratory distress, no retraction, no wheezing Cardiovascular #1: normal peripheral pulses, no murmur, tachycardia Gastrointestinal: non tender, soft, non-distended, no guarding Neurologic: alert, oriented x3, no focal defects Skin: normal color, warm/dry Medical Decision Making Diagnostic Impression: Primary Impression: Amphetamine abuse ER Course Patient presented after abusing methamphetamine. He has a history of methamphetamine abuse. He had no specific ER complaints. He would not sit on the gurney to be examined and was walking around the ER. Again he had no specific complaints and was alert and oriented x3. I do believe his presentation is secondary amphetamine use. I did recommend cessation from methamphetamine. Otherwise he will be discharged to self-care in stable condition. Suspicion for emergent etiology at this time. Last Vital Signs Date Time Temp Pulse Resp B/P (MAP) Pulse Ox O2 Delivery O2 Flow Rate FiO2 10/11/20 09:08 97.9 18 160/80 98 Room Air 10/11/20 09:01 110 Disposition: HOME, SELF-CARE Condition: Stable Referrals: [facility] (PCP) Patient Instructions: Stimulant Use Disorder-Amphetamines Additional Instructions: Please avoid further methamphetamine use. Please follow-up with your primary physician as scheduled. Lavelle Oliver M.D. Oct 11, 2020 09:24
== END 2020-10-11 09:08 | disposition home or self-care (01) ==
LOC: EMR 09:05
DX: F15.10 Other stimulant abuse, uncomplicated (principal)
CPT/HCPCS: 99281